=== PATIENT | female | born 1960 | race Caucasian/White ===

== ENCOUNTER 2023-07-16 14:22 | Outpatient (AMB) | payer OTHER, SELFPAY ==
--- NOTE | 2023-07-16 14:27 | A.OFFVIS_ITS ---
Intake Intake Visit Reasons: Kidney Stones Intake Note: NEW Patient presents today to established treatment for Kidney Stones: Meds- Tamsulosin( She did finish) Allergies to Antibiotic- Amoxicillin Blood Thinner- None Allergies amoxicillin Allergy (Unverified 07/20/23 10:51) Unknown Medication List - Last Reconciled 07/16/23 by Bobbi Arguelles MD ondansetron mg PO tamsulosin 0.4 mg PO DAILY HPI HPI Comments History of Present Illness Details Nabila is a 63-year-old female who presents today to the office to establish as a new patient for an evaluation of kidney stones. 07/16/2023? She presents today for an evaluation of kidney stones. She was referred to the urology office by NAVI Bagley. I have reviewed the consults notes. She was referred to the urology office due to kidney stones. She had an prior episode on 12/22/2031 noted to have a 2 mm ureteral stone and followed up with another urology group at that time. She had renal US done which revealed mild left hydronephrosis and possible 7 mm proximal ureter stone. (report reviewed) I reviewed the CAT scan that was done on 06/18/23 noted a 5 mm left UVJ stone, with mild to moderate hydronephrosis. I have discussed plan for Cystoscopy, left ureteroscopy, laser lithotripsy, ureteral stent. Risks discussed included but not limited to, possible need to repeat procedure if stone is not completely fragmented, Irritative voiding symptoms, bladder spasms, urgency, blood in urine. Evaluation today--UA? Leukocytes: negative; blood: 80 Kei. Plan: Scheduled ureteroscopy next week. Ordered tamsulosin 0.4 mg daily. Obtain the 24-hour urine collection from the other urology office. [facility] Medical History History of renal stone Hallux valgus with bunions Presbyopia Astigmatism Myopia Needle phobia Surgical History History of bunionectomy Hx of hysterectomy Family History Mother Malignant neoplastic disease Myocardial infarction Father Myocardial infarction Sister Sepsis due to pneumonia Brother Acute deep vein thrombosis of leg Social History Alcohol intake: current Patient Tobacco Use Status: Former Tobacco user Review of Systems Const All systems reviewed & are unremarkable except as noted in HPI and below Reports no additional complaints Eyes Reports no additional complaints ENT Reports no additional complaints Card Denies dyspnea Resp Denies cough and Denies dyspnea GI Reports no additional complaints Reports no additional complaints Musc Reports no additional complaints Skin/Breast Denies rash and Denies unusual bruising Neuro Reports no additional complaints Psych Reports no additional complaints Endo Reports no additional complaints Dimitris/Lymph Reports no additional complaints Aller/Immun Reports no additional complaints Physical Exam Const General: cooperative, healthy appearing and no acute distress Orientation/consciousness: patient oriented x3 HEENT Head: Yes normal to inspection, Yes normocephalic and Yes atraumatic Eyes Conjunctivae: conjunctivae normal Neck Neck: Yes normal visual inspection and Yes trachea midline Chest Chest palpation & inspection: normal inspection of the chest Resp Effort & Inspection: normal respiratory effort Cardio Rate: regular rate GI Inspection: Yes normal to inspection Skin General skin exam: no rashes or lesions noted Neuro General: patient oriented x3 Extrem General: No edema Psych Appearance: grossly normal Results AMB Urinalysis, Automated UA Leukoctes 0 [place]/uL Last Edit by DENISHA Vera on 07/16/23 14:50 UA Nitrite Negative Last Edit by DENISHA Vera on 07/16/23 14:50 UA Urobilinogen 0.2 mg/dL Last Edit by DENISHA Vera on 07/16/23 14:5 0 UA Protein 30 mg/dL Last Edit by DENISHA Vera on 07/16/23 14:50 UA pH 6.0 Last Edit by DENISHA Vera on 07/16/23 14:50 UA Blood 80 Kei/uL Last Edit by DENISHA Vera on 07/16/23 14:50 UA Specific [place] 1.025 Last Edit by DENISHA Vera on 07/16/23 14: 50 UA Ketone Negative Last Edit by DENISHA Vera on 07/16/23 14:50 UA Bilirubin 1 mg/dL Last Edit by DENISHA Vera on 07/16/23 14:50 UA Glucose 0 mg/dL Last Edit by Gina Huang RMJoaquín on 07/16/23 14:50 Results Reviewed Results Reviewed: Laboratory Last Values Urine pH (Auto) 6.0 07/16/23 14:31 Specific [place] (Auto) 1.025 07/16/23 14:31 Urine Protein (Auto) 30 mg/dL 07/16/23 14:31 Glucose (UA)(Auto) 0 mg/dL 07/16/23 14:31 Urine Ketones (Auto) Negative 07/16/23 14:31 Urine Blood (Auto) 80 Kei/uL 07/16/23 14:31 Urine Nitrite (Auto) Negative 07/16/23 14:31 Urine Bilirubin (Auto) 1 mg/dL 07/16/23 14:31 Urine Urobilinogen (Auto) 0.2 mg/dL 07/16/23 14:31 Leukocyte Esterase (Auto) 0 [place]/uL 07/16/23 14:31 Assessment & Plan Assessment & Plan (1) Hydronephrosis: Code(s): N13.30 - Unspecified hydronephrosis (2) Ureteral stone: Code(s): N20.1 - Calculus of ureter Plan Scheduled ureteroscopy next week. Ordered tamsulosin 0.4 mg daily. Obtain the 24-hour urine collection from the other urology office. Orders: Orders AMB Urinalysis Automated 07/16/23 Z13.9 - Encounter for screening, unspecified Medications: New tamsulosin take in the evening before bed. 0.4 mg PO DAILY 14 caps 0RF to help pass kidney stone Patient Instructions: The patient had an opportunity to ask questions regarding treatment plan. All questions were answered. Imaging, Laboratory studies and physical exam results were discussed and reviewed in detail. No major barriers to understanding were identified. The patient expressed understanding and agreement with the above treatment plan.? ? ? The patient is aware they should contact our office by phone for worsening of their current condition or the appearance of new symptoms. Compliance is encouraged with any medications and followup testing that is ordered.? ? ? It is a privilege to be allowed the opportunity to participate in the urologic care of your patient. If you have any questions or concerns regarding treatment for the above conditions please do not hesitate to contact me. The office telephone contact is [phone].? ? ? This note is constructed in part using voice recognition software. While every effort has been made to ensure accuracy mop handle assembler errors may have been included.? ? ? Yours sincerely,? ? ? Bobbi Arguelles MD? Coding Level of Care Code New Pt Level 4 (53296) Diagnoses Hydronephrosis N13.30 Ureteral stone N20.1
--- NOTE | 2023-07-16 14:27 | MHC.OFFVIS ---
Intake Intake Visit Reasons: Kidney Stones Intake Note: NEW Patient presents today to established treatment for Kidney Stones: Meds- Tamsulosin Allergies to Antibiotic- Amoxicillin Blood Thinner- None Allergies amoxicillin Allergy (Mild, Verified 07/09/23 08:50) Unknown hydrocodone Allergy (Mild, Verified 07/09/23 08:50) Unknown PFSH Medical History History of renal stone Hallux valgus with bunions Presbyopia Astigmatism Myopia Needle phobia Surgical History History of bunionectomy Hx of hysterectomy Family History Mother Malignant neoplastic disease Myocardial infarction Father Myocardial infarction Sister Sepsis due to pneumonia Brother Acute deep vein thrombosis of leg Social History Alcohol intake: current Patient Tobacco Use Status: Former Tobacco user Coding
== END 2023-07-16 15:56 | disposition home or self-care (01) ==
PROVIDERS: PCP Physician Assistant; Visit Provider Urology
DX: N13.30 Unspecified hydronephrosis (principal); N20.1 Calculus of ureter
CPT/HCPCS: 99204

== ENCOUNTER → 2023-07-16 14:22 | Outpatient (BNVA) | payer OTHER, SELFPAY | PROVIDERS: PCP Physician Assistant; Visit Provider Urology | DX: N13.2 Hydronephrosis with renal and ureteral calculous obstruction (principal) | CPT/HCPCS: 81003 ==

== ENCOUNTER 2023-07-21 07:26 | Day surgery (SDC) | payer OTHER, SELFPAY ==
--- NOTE | 2023-07-20 13:21 | HO.ANESPROP2 ---
HPI - Anesthesia Eval Consult details Narrative: 63yo F for Cystoscopy, Ureteroscopy, Laser Ablation w stent placement PMFSH Past Medical History Medical History History of renal stone Hallux valgus with bunions Presbyopia Astigmatism Myopia Needle phobia Family History Family History Mother Malignant neoplastic disease Myocardial infarction Father Myocardial infarction Sister Sepsis due to pneumonia Brother Acute deep vein thrombosis of leg Surgical History Surgical History History of bunionectomy Hx of hysterectomy Social History Social History Alcohol intake: current Patient Tobacco Use Status: Former Tobacco user Quit Date: 37 years Meds Allergies Allergy/AdvReac Type Severity Reaction Status Date / Time No Known Allergies Allergy Verified 07/21/23 08:13 Home Medications Medication Instructions Recorded Confirmed Last Taken Type ondansetron 4 mg disintegrating 4 mg PO Q4H PRN Nausea And Vomiting 07/16/23 07/16/23 Unknown History tablet Exam Exam Date and Time: July 20, 2023 1321 Assessment and Plan Assessment Anesthesia Assessment: Chart Reviewed
[2023-07-21] VITALS (7 sets, daily range): BP systolic 137–152; BP diastolic 63–74; PULSE 67–74; RESP 16–18; TEMP 36.6–37; O2SAT 94–99; BMI 23.1
--- NOTE | ~2023-07-21 | FL_ITS ---
EXAMINATION: XR FLUOROSCOPY WITH IMAGES CLINICAL INFORMATION: Cystoscopy special, left. COMPARISON: None available. TECHNIQUE: Fluoroscopy Supervised By: Dr. Arguelles. Fluoroscopy Time: 18.7 seconds. Cumulative Dose: 3.29 mGy. DAP: Not available. Images: 5. FINDINGS: Fluoroscopy guidance performed for left internal stent placement. Final image demonstrates a left internal ureteral stent in satisfactory position. FL/FL guidance in OR IMPRESSION: Fluoroscopy guidance for left internal ureteral stent placement.
--- NOTE | 2023-07-21 07:58 | P.CONAN_ITS ---
FORM[facility]LY [facility], LATER [facility] Active Problems Active Problems: All Active Problems (Updated 07/20/23 @ 15:33 by Bobbi Arguelles MD) Ureteral stone (Acute) Hydronephrosis (Acute) Past Medical History Medical History History of renal stone Hallux valgus with bunions Presbyopia Astigmatism Myopia Needle phobia Functional capacity: independent ambulation Patient : No Family History Family History Mother Malignant neoplastic disease Myocardial infarction Father Myocardial infarction Sister Sepsis due to pneumonia Brother Acute deep vein thrombosis of leg Family history of problems with anesthesia: No Surgical History Surgical History History of bunionectomy Hx of hysterectomy History of Problems with Anesthesia: No Social History Social History Alcohol intake: current Patient Tobacco Use Status: Former Tobacco user Quit Date: 37 years Meds Allergies Allergy/AdvReac Type Severity Reaction Status Date / Time No Known Allergies Allergy Verified 07/21/23 08:13 Active Medications: Current Medications Lactated Ringer's (Lr) 1,000 mls @ 100 mls/hr IVCONT .Q10H [facility] Home Medications Medication Instructions Recorded Confirmed Last Taken Type ondansetron 4 mg disintegrating 4 mg PO Q4H PRN Nausea And Vomiting 07/16/23 07/16/23 Unknown History tablet Exam Exam Date and Time: July 21, 2023 0758 Airway Mallampati Class: II TM Dist: >3cm Neck ROM: Full Heart: RRR Lungs: CTA Assessment and Plan Assessment Anesthesia Assessment: Anesthesia Plan Discussed Final Anesthetic Review Family History of Problems with Anesthesia: No History of Problems with Anesthesia: No NPO: Yes ASA Class: II Final Preanesthetic Review: Meds/Allgs Chart Reviewed, Consent Obtained/Reviewed and Anes Risks/Benef Reviewed Anesthetic Plan Anesthetic Plan: GA Disposition: Standard PACU
[2023-07-21] MEDS: Lactated Ringers 1,000 ML 100 ML IVCONT (08:18)
--- NOTE | 2023-07-21 08:38 | MHC.SHP ---
Pre-Procedural Eval Section A Date of Service: 07/21/23 The patient is an INPATIENT: No The History & Physical has been completed within 30 days and I have reviewed it.: Yes Section B Chief Complaint: Calculus of kidney Allergies: Allergies Allergy/AdvReac Type Severity Reaction Status Date / Time No Known Allergies Allergy Verified 07/21/23 08:13 Plan Diagnosis/Plan: Unchanged I have reviewed the history and physical and performed a pertinent physical examination on my patient. No changes have occurred unless specified. Plan for Cystoscopy, left ureteroscopy, possible laser lithotripsy, possible ureteral stent. Risks discussed included but not limited to, possible need to repeat procedure if stone is not completely fragmented, Irritative voiding symptoms, bladder spasms, urgency, blood in urine. Time Spent With Patient Time: Total time managing care of this patient today ____ minutes.
--- NOTE | 2023-07-21 10:22 | W.PM.OPN ---
Operative Note Operative Note Date of Service: 07/21/23 Narrative: PreOperative Diagnosis:?? Left ureteral stone Post Operative Diagnosis:?? Left ureteral stone Procedure: - Cystoscopy, left retrograde, left ureteroscopy laser lithotripsy stent insertion, 6 Bolivian by 24 cm urethral dilation Surgeon:?Dr Bobbi Arguelles Anesthesia:? General Indications for procedure: Procedure: After informed consent was verified the patient was brought to the operating placed on the OR table in supine position.? General Anesthesia was administered per protocol.? The patient was placed in lithotomy position, prepped and draped in the usual sterile fashion.? Safety pause time-out and side of surgery confirmed.? Antibiotics confirmed. 2% lidocaine jelly 10 mL was passed transurethrally. The urethral meatus was atrophic. The 22 cystoscope or obturator was not able to be passed transurethrally. The urethral meatus was dilated starting with a 14 fr and sequentially dilated up to a 24 fr. A 22 Bolivian cystoscope was inserted transurethrally, The bladder was visualized.? Both ureteric orifices were in normal position. An open-ended ureteral catheter was passed into the left ureteral orifice and a retrograde examination was performed. There was a filling defect in the distal left ureter. A guidewire was passed through the ureteral catheter into the kidney. The balloon dilator size 12 fr was passed over the guide -wire the balloon was inflated to 8 mmHg and the intramural ureter was dilated for 45 seconds. The balloon was deflated and removed. After removing the balloon dilator a 2nd guidewire was then passed into the kidney to use as a safety. The cystoscope was removed, leaving both guidewires in place. One guidewire was used as the safety and was attached to the draping. The semi rigid ureteroscope was passed over one of the guidewires to the level of the stone in the ureter. One guidewire was then removed. Laser lithotripsy of the stone was done using the 365 fiber with a settings 0.8 joules by 6 hertz. Total KJ 5.52 There was good fragmentation of the stone. The 0 degree basket was passed through the ureteroscope, the stone fragments were removed to send for analysis. The ureteroscope was removed. The cystoscope was passed over the safety guidewire. A? 6 Bolivian by 24 cm stent was placed into the ureter and renal pelvis under a combination of fluoroscopy and direct visualization. The bladder was emptied.? The rigid cystoscope was removed. ? The patient tolerated the procedure well and was brought to the recovery room in stable condition. Complications: None Drains: Ureteral stent as dictated above
--- NOTE | 2023-07-21 14:06 | HO.POSTANES ---
Post Anesthesia Evaluation Post Anesthesia Evaluation Date of Service: 07/21/23 Vital Signs: Vital Signs Temp Pulse Resp BP Pulse Ox O2 Del Method 07/21/23 10:53 98.2 F 73 16 152/70 H 99 Room Air 07/21/23 10:40 67 16 141/69 H 99 Room Air 07/21/23 10:25 67 16 138/64 99 Room Air 07/21/23 10:20 71 16 145/69 H 94 Room Air 07/21/23 10:15 74 16 141/69 H 95 Room Air 07/21/23 10:10 98 F 72 16 137/63 97 Room Air 07/21/23 07:58 98.6 F 69 18 149/74 H 99 Room Air Anesthesia: General LMA Mental Status: Awake Pain Control: Satisfactory Nausea/Vomiting: None Hydration: Adequate Anesthesia-Related Issues: No Anes. Related Issues
[2023-07-28 13:58] LABS: Stone Source KIDNEY STONE
== END 2023-07-21 12:07 | disposition home or self-care (01) ==
PROVIDERS: PCP Physician Assistant; Visit Provider Urology
PROC: (CPT 52356; principal; 2023-07-21 10:10)
DX: N20.1 Calculus of ureter (principal); Z87.442 Personal history of urinary calculi; F40.231 Fear of injections and transfusions; H52.4 Presbyopia; H55.89 Other irregular eye movements; Z88.1 Allergy status to other antibiotic agents; Z79.899 Other long term (current) drug therapy; Z87.891 Personal history of nicotine dependence
CPT/HCPCS: 52356; 82365; 88300; C1726; C1769; C2617; J1956; J2250; J2405; J3010; Q9967

== ENCOUNTER → 2023-07-21 07:26 | Outpatient (BNV) | payer OTHER, SELFPAY | PROVIDERS: PCP Physician Assistant; Visit Provider Urology | DX: N20.1 Calculus of ureter (principal) | CPT/HCPCS: 52356; 74420 ==

== ENCOUNTER 2023-07-30 07:50 | Outpatient (AMB) | payer OTHER, SELFPAY ==
--- NOTE | 2023-07-30 07:54 | MHC.OFFVIS ---
Intake Intake Visit Reasons: Post op Cysto stent removal Intake Note: Patient presents today for a CYSTOSCOPY Procedure: Meds: None Allergies to Antibiotic: No Known Allergies Blood Thinner: None Urinalysis test cleared for Cysto Disposable Uro-G Cystoscope Cannula: Lot: [id number] Exp: 03/15/2025 Eligibility Worker Required: No Accompanied by: Self / Same As Patient Allergies No Known Allergies Allergy (Verified 07/30/23 08:12) HPI HPI Comments History of Present Illness Details Nabila is a 63-year-old female who presents today to the office for a follow-up. 07/30/2023? She is followed today for post op stent removal. She is a status post ureteroscopy done on 07/21/2023.? Patient states that her is very sick and was hospitalized at [facility], Currently, he is undergoing a major surgery due to hiatal hernia.. Stone analysis was obtained which came back calcium oxalate dihydrate 10 %, and calcium oxalate monohydrate was 90%. I have again reviewed 06/18/23 CTAP report which did not report intra renal caluli, left UVJ stone was treated as above. Reviewed lifestyle changes with diet including drinking adequate fluids to reduce risk of developing another kidney stone Plan: Stent was removed today in the office. To obtain 24-hour urine calcium. Follow-up in 10 weeks. [facility] Medical History (Updated 07/30/23 @ 08:42 by Bobbi Arguelles MD) History of renal stone Hallux valgus with bunions Presbyopia Astigmatism Myopia Needle phobia Surgical History History of removal of ureteral stent History of bunionectomy Hx of hysterectomy Family History Mother Malignant neoplastic disease Myocardial infarction Father Myocardial infarction Sister Sepsis due to pneumonia Brother Acute deep vein thrombosis of leg Social History Alcohol intake: current Patient Tobacco Use Status: Former Tobacco user Quit Date: 37 years Review of Systems Const All systems reviewed & are unremarkable except as noted in HPI and below Reports no additional complaints Eyes Reports no additional complaints ENT Reports no additional complaints Card Denies dyspnea Resp Denies cough and Denies dyspnea GI Reports no additional complaints Reports no additional complaints Musc Reports no additional complaints Skin/Breast Denies rash and Denies unusual bruising Neuro Reports no additional complaints Psych Reports no additional complaints Endo Reports no additional complaints Dimitris/Lymph Reports no additional complaints Aller/Immun Reports no additional complaints Office Procedures Cystoscopy Consent Discussed risk and benefit or proposed procedure with the patient. Information consent for procedure given to the patient. Discussed technical aspects, risks, benefits and alternatives in full. Addressed all of the patient's questions and concerns regarding the procedure. The patient demonstrated knowledge and understanding. They wish to proceed with this procedure. Preparation The patient was prepped in the usual manner. A remote sensing engineer was present and in the room. Genitalia was prepped with betadine solution in a sterile manner. Lidocaine Jelly 2% was placed into the urethra and 16Fr flexible Olympus cystoscope was inserted into the meatus after adequate lubrication. [id number] DISPOSABLE SCOPE URO-G FLEXIBLE SCOPE Procedure code (CPT) selection complete Office Meds lidocaine HCl 2 % mucosal jelly in applicator Performing Provider: Bobbi Arguelles MD Performing Location[facility] Administered by: Weston Her LPN on 07/30/23 08:12 Dose Route Admin Location Dispensed Lot Number Expiration Date ND Activities Coordinator 10 mL intra-urethral 20 mL naproxen 500 mg tablet Performing Provider: Bobbi Arguelles MD Performing Location: [facility] Administered by: Weston Her LPN on 07/30/23 08:12 Dose Route Admin Location Dispensed Lot Number Expiration Date NDC Activities Coordinator 500 mg PO 1 tab ciprofloxacin HCl 500 mg tablet Performing Provider: Bobbi Arguelles MD Performing Location: [facility] Administered by: Weston Her LPN on 07/30/23 08:12 Dose Route Admin Location Dispensed Lot Number Expiration Date NDC Activities Coordinator 500 mg PO 1 tab Results AMB Urinalysis, Automated UA Leukoctes 125 [place]/uL Last Edit by DENISHA Whittington on 07/30/23 08:15 2+ Tiana Arteaga 07/30/23 08:15 UA Nitrite Negative Last Edit by DENISHA Whittington on 07/30/23 08:15 UA Urobilinogen 0.2 mg/dL Last Edit by Jccanid Chandler, [facility] on 07/30/23 08:15 UA Protein 100 mg/dL Last Edit by Jccandi Chandler, [facility] on 07/30/23 08:15 2+ Tiana Chandler 07/30/23 08:15 UA pH 6.0 Last Edit by Jccandi Chandler, [facility] on 07/30/23 08:15 UA Blood 200 Kei/uL Last Edit by Jccandi Chandler, [facility] on 07/30/23 08:15 3+ Jccandi Morenoirez 07/30/23 08:15 UA Specific [place] 1.025 Last Edit by Tiana Chandler, [facility] on 07/30/23 08:15 UA Ketone Negative Last Edit by Jccandi Chandler, [facility] on 07/30/23 08:15 UA Bilirubin 0 mg/dL Last Edit by Tiana Arteaga [facility] on 07/30/23 08:15 UA Glucose 0 mg/dL Last Edit by Tiana Arteaga [facility] on 07/30/23 08:15 Results Reviewed Results Reviewed: Laboratory Last Values Urine pH (Auto) 6.0 07/30/23 08:13 Specific [place] (Auto) 1.025 07/30/23 08:13 Urine Protein (Auto) 100 mg/dL 07/30/23 08:13 Glucose (UA)(Auto) 0 mg/dL 07/30/23 08:13 Urine Ketones (Auto) Negative 07/30/23 08:13 Urine Blood (Auto) 200 Kei/uL 07/30/23 08:13 Urine Nitrite (Auto) Negative 07/30/23 08:13 Urine Bilirubin (Auto) 0 mg/dL 07/30/23 08:13 Urine Urobilinogen (Auto) 0.2 mg/dL 07/30/23 08:13 Leukocyte Esterase (Auto) 125 [place]/uL 07/30/23 08:13 EBONY: 07/21/23 STATUS: COMP REQ : [id number] RECD: 07/21/23-[address]: Bobbi Arguelles MD COMP: 07/28/23-1358 ENTERED: 07/21/23-[address]: WALESKA CERVANTES ORDERED: Kidney Stone QUERIES: Kidney Stone Source: [id number] Test Result Flag Reference Site Component 1 SEE NOTE QUM Calcium Oxalate Dihydrate ([place]) 10% Calcium Oxalate Monohydrate ([place]) 90% See Note 1 Stone Weight 0.029 g QUM Note 1 This test was developed and its analytical performance characteristics have been determined by [employer]. It has not been cleared or approved by the FDA. This assay has been validated pursuant to the CLIA regulations and is used for clinical purposes. THIS TEST WAS PERFORMED AT: [facility] [facility] [address] [place] [address] AMBIKA MERCADO MD Stone Source KIDNEY STONE QUM Assessment & Plan Assessment & Plan (1) Hydronephrosis: Code(s): N13.30 - Unspecified hydronephrosis (2) Ureteral stone: Code(s): N20.1 - Calculus of ureter (3) Nephrolithiasis: Code(s): N20.0 - Calculus of kidney Plan Stent was removed today in the office. To obtain 24-hour urine calcium.? Follow-up in 10 weeks. Orders: Orders AMB Cystoscopy Today N13.30 - Unspecified hydronephrosis AMB Urinalysis Automated Today Z13.9 - Encounter for screening, unspecified Patient Instructions: The patient had an opportunity to ask questions regarding treatment plan. All questions were answered. Imaging, Laboratory studies and physical exam results were discussed and reviewed in detail. No major barriers to understanding were identified. The patient expressed understanding and agreement with the above treatment plan.? ? ? The patient is aware they should contact our office by phone for worsening of their current condition or the appearance of new symptoms. Compliance is encouraged with any medications and followup testing that is ordered.? ? ? It is a privilege to be allowed the opportunity to participate in the urologic care of your patient. If you have any questions or concerns regarding treatment for the above conditions please do not hesitate to contact me. The office telephone contact is [phone].? ? ? This note is constructed in part using voice recognition software. While every effort has been made to ensure accuracy turn out worker errors may have been included.? ? ? Yours sincerely,? ? ? Bobbi Arguelles MD? Coding Level of Care Code Est Pt Level 3 (74898) Diagnoses Hydronephrosis N13.30 Ureteral stone N20.1 Nephrolithiasis N20.0 CPT Codes Cystoscopy - CPT: 68821-[id number] ([id number])
== END 2023-07-30 08:54 | disposition home or self-care (01) ==
PROVIDERS: PCP Physician Assistant; Visit Provider Urology
DX: N13.30 Unspecified hydronephrosis (principal); N20.1 Calculus of ureter; N20.0 Calculus of kidney; Z13.9 Encounter for screening, unspecified; Z96.0 Presence of urogenital implants
CPT/HCPCS: 52310; 99213

== ENCOUNTER → 2023-07-30 07:50 | Outpatient (BNVA) | payer OTHER, SELFPAY | PROVIDERS: PCP Physician Assistant; Visit Provider Urology | DX: Z48.816 Encounter for surgical aftercare following surgery on the genitourinary system (principal) | CPT/HCPCS: 52310; 81003 ==

== ENCOUNTER 2023-10-08 13:47 | Outpatient (AMB) | payer OTHER, SELFPAY ==
--- NOTE | 2023-10-08 13:52 | A.OFFVIS_ITS ---
Intake Intake Visit Reasons: 24hr urine- follow up Intake Note: Patient presents today for a follow-up on Litholink Results: Meds- Tamsulosin( She did finish) Allergies to Antibiotic- Amoxicillin Blood Thinner- None Mail Order Biller Required: No Accompanied by: Significant Other Allergies No Known Allergies Allergy (Verified 10/08/23 13:57) HPI HPI Comments History of Present Illness Details Nabila is a 63-year-old female who presents today to the office for a follow-up. 10/08/2023? She is followed today for 24-hour urine collection. She was last seen by me on 07/30/2023 for post op stent removal. I reviewed the 24-hour urine collection test results revealed urine volume was 1.79 L which is increased from 450, urine calcium was 307 which is elevated, urine oxalate was 32, urine citrate was 773, and urine sodium was 286. I have discussed at length diet modification to decrease risk of forming more kidney stones. I have discussed low oxalate diet and specific foods to avoid including certain green leafy vegetables, chocalate, nuts, tea, beets, rubarb; low sodium, decreased use of animal protein and the importance of hydration drinking up to 2-2.5 liters of fluids and use of adding lemon to water to increase citrate in the diet. Review of charts: Last visit: 07/30/2023? She is followed today for post op stent removal. She is a status post ureteroscopy done on 07/21/2023. Patient states that her is very sick and was hospitalized at [facility], Currently, he is undergoing a major surgery due to hiatal hernia.. Stone analysis was obtained which came back calcium oxalate dihydrate 10 %, and calcium oxalate monohydrate was 90%. 06/18/23 CTAP report which did not report intra renal caluli, left UVJ stone was treated as above. 10/08/2023: Plan: Renal US was ordered. Repeat 24-hour urine collection in 7 months. Follow-up in 9 months to review the results. [facility] Medical History (Updated 10/08/23 @ 14:14 by Bobbi Arguelles MD) History of renal stone Hallux valgus with bunions Presbyopia Astigmatism Myopia Needle phobia Surgical History History of removal of ureteral stent History of bunionectomy Hx of hysterectomy Family History Mother Malignant neoplastic disease Myocardial infarction Father Myocardial infarction Sister Sepsis due to pneumonia Brother Acute deep vein thrombosis of leg Social History Alcohol intake: current Patient Tobacco Use Status: Former Tobacco user Quit Date: 37 years Review of Systems Const All systems reviewed & are unremarkable except as noted in HPI and below Reports no additional complaints Eyes Reports no additional complaints ENT Reports no additional complaints Card Denies dyspnea Resp Denies cough and Denies dyspnea GI Reports no additional complaints Reports no additional complaints Musc Reports no additional complaints Skin/Breast Denies rash and Denies unusual bruising Neuro Reports no additional complaints Psych Reports no additional complaints Endo Reports no additional complaints Dimitris/Lymph Reports no additional complaints Aller/Immun Reports no additional complaints Physical Exam Const General: cooperative, healthy appearing and no acute distress Orientation/consciousness: patient oriented x3 HEENT Head: Yes normal to inspection, Yes normocephalic and Yes atraumatic Eyes Conjunctivae: conjunctivae normal Neck Neck: Yes normal visual inspection and Yes trachea midline Chest Chest palpation & inspection: normal inspection of the chest Resp Effort & Inspection: normal respiratory effort Cardio Rate: regular rate GI Inspection: Yes normal to inspection Skin General skin exam: no rashes or lesions noted Neuro General: patient oriented x3 Extrem General: No edema Psych Appearance: grossly normal Results AMB Urinalysis, Automated UA Leukoctes 15 [place]/uL Last Edit by DENISHA Whittington on 10/08/23 14:07 UA Nitrite Negative Last Edit by DENISHA Whittington on 10/08/23 14:07 UA Urobilinogen 0.2 mg/dL Last Edit by DENISHA Whittington on 10/08/23 14:0 7 UA Protein 15 mg/dL Last Edit by DENISHA Whittington on 10/08/23 14:07 UA pH 6.0 Last Edit by VANDANA WhittingtonA on 10/08/23 14:07 UA Blood 10 Kei/uL Last Edit by VANDANA WhittingtonA on 10/08/23 14:07 UA Specific [place] 1.030 Last Edit by VANDANA WhittingtonA on 10/08/23 14: 07 UA Ketone Negative Last Edit by Tiana Arteaga RMA on 10/08/23 14:07 UA Bilirubin 0 mg/dL Last Edit by VANDANA WhittingtonA on 10/08/23 14:07 UA Glucose 0 mg/dL Last Edit by VANDANA WhittingtonA on 10/08/23 14:07 Results Reviewed Results Reviewed: Laboratory Last Values Urine pH (Auto) 6.0 10/08/23 14:06 Specific [place] (Auto) 1.030 10/08/23 14:06 Urine Protein (Auto) 15 mg/dL 10/08/23 14:06 Glucose (UA)(Auto) 0 mg/dL 10/08/23 14:06 Urine Ketones (Auto) Negative 10/08/23 14:06 Urine Blood (Auto) 10 Kei/uL 10/08/23 14:06 Urine Nitrite (Auto) Negative 10/08/23 14:06 Urine Bilirubin (Auto) 0 mg/dL 10/08/23 14:06 Urine Urobilinogen (Auto) 0.2 mg/dL 10/08/23 14:06 Leukocyte Esterase (Auto) 15 [place]/uL 10/08/23 14:06 Assessment & Plan Assessment & Plan (1) History of renal stone: Code(s): Z87.442 - Personal history of urinary calculi Plan Renal US was ordered. Repeat 24-hour urine collection in 7 months. Follow-up in 9 months to review the results. Orders: Orders AMB Urinalysis Automated 10/08/23 Z13.9 - Encounter for screening, unspecified US renal BI 10/08/23 Z87.442 - Personal history of urinary calculi Medications: New tamsulosin (Flomax) 0.4 mg PO BEDTIME 30 caps 4RF help with urinary flow Patient Instructions: The patient had an opportunity to ask questions regarding treatment plan. All questions were answered. Imaging, Laboratory studies and physical exam results were discussed and reviewed in detail. No major barriers to understanding were identified. The patient expressed understanding and agreement with the above treatment plan. The patient is aware they should contact our office by phone for worsening of their current condition or the appearance of new symptoms. Compliance is encouraged with any medications and followup testing that is ordered. It is a privilege to be allowed the opportunity to participate in the urologic care of your patient. If you have any questions or concerns regarding treatment for the above conditions please do not hesitate to contact me. The office telephone contact is [phone]. This note is constructed in part using voice recognition software. While every effort has been made to ensure accuracy management rep errors may have been included. Yours sincerely, Bobbi Arguelles MD Coding Level of Care Code Est Pt Level 4 (59613) Diagnoses History of renal stone Z87.442
== END 2023-10-08 14:14 | disposition home or self-care (01) ==
PROVIDERS: PCP Physician Assistant; Visit Provider Urology
DX: Z87.442 Personal history of urinary calculi (principal)
CPT/HCPCS: 99214

== ENCOUNTER → 2023-10-08 13:47 | Outpatient (BNVA) | payer OTHER, SELFPAY | PROVIDERS: PCP Physician Assistant; Visit Provider Urology | DX: Z87.442 Personal history of urinary calculi (principal) | CPT/HCPCS: 81003 ==

== ENCOUNTER 2024-06-23 09:51 | Outpatient (REF) | payer MEDICARE, OTHER, SELFPAY ==
--- NOTE | ~2024-06-23 | US_ITS ---
EXAMINATION: US RETROPERITONEAL COMPLETE (RENAL) CLINICAL INFORMATION: History of renal calculi. COMPARISON: None available. TECHNIQUE: Real-time imaging of the kidneys and bladder. Limited visualization due to bowel gas. FINDINGS: RIGHT KIDNEY: 10.2 x 4.5 x 3.4 cm (SAG x AP x TRV). No hydronephrosis. Renal cortical thickness is normal. Limited visualization. Tiny right renal midpole echogenic foci may represent calcified vessels and do not appear typical of renal calculi. No obstructing renal calculi. LEFT KIDNEY: 10.1 x 5.1 x 4.1 cm (SAG x AP x TRV). Mild hydronephrosis. No renal calculi. Renal cortical thickness is normal. Limited visualization. BLADDER: Prevoid bladder volume 57.5 mL. Bladder was visualized due to mild hydronephrosis, upper, dedicated bladder ultrasound was not performed. Incidental note on limited views of the pelvis of a left adnexal anechoic, cystic structure, possibly a pelvic cyst. Dedicated evaluation with pelvic ultrasound recommended. US/US renal BI IMPRESSION: 1. Mild left hydronephrosis. Tiny right renal midpole echogenic foci may represent calcified vessels and do not appear typical of renal calculi. No obstructing renal calculi. 2. Incidental note on limited views of the pelvis of a left adnexal anechoic, cystic structure, possibly a pelvic cyst. Dedicated evaluation with pelvic ultrasound recommended. Electronically signed by: Vi Levi MD 07/06/2024 06:01 AM EDT
== END 2024-06-23 09:52 | disposition home or self-care (01) ==
LOC: HO.US 09:51
PROVIDERS: PCP Physician Assistant; Visit Provider Urology
DX: Z87.442 Personal history of urinary calculi (principal)
CPT/HCPCS: 76775

== ENCOUNTER 2024-07-07 14:01 | Outpatient (AMB) | payer MEDICARE, OTHER, SELFPAY ==
--- NOTE | 2024-07-07 14:02 | A.OFFVIS_ITS ---
Intake Visit Reasons: 9m/US/Lithgek(set) Intake Note: Patient presents today for a 9M follow-up on Litholink/US Meds- Tamsulosin, PYRIDIUM, VESICASE Allergies to Antibiotic- Amoxicillin Blood Thinner- None Operations Supervisor Required: No Accompanied by: Significant Other Allergies amoxicillin Allergy (Mild, Verified 07/07/24 14:04) UNKONWN Medication List - Last Reconciled 07/07/24 by Bobbi Arguelles MD ondansetron 4 mg PO Q4H PRN phenazopyridine (Pyridium) 200 mg PO TID PRN HPI Comments Details: 07/07/24--Nabila is a 64-year-old female who presents today to the office for a follow-up. Mild left hydronephrosis. Tiny right renal midpole echogenic foci may represent calcified vessels and do not appear typical of renal calculi. Incidental note on limited views of the pelvis of a left adnexal anechoic, cystic structure, possibly a pelvic cyst. Discussed 24 hour urine results: Total volume 1.0 L, Calcium 166 mg; Oxalate 35 mg, Sodium 129, Citrate 466 mg. Instructed on importance of fluid intake. Will refer to DATA SUPPORT SPECIALIST, monitor kidneys, fu in one year. Review of charts: 10/08/2023? She is followed today for 24-hour urine collection. She was last seen by me on 07/30/2023 for post op stent removal. I reviewed the 24-hour urine collection test results revealed urine volume was 1.79 L which is increased from 450, urine calcium was 307 which is elevated, urine oxalate was 32, urine citrate was 773, and urine sodium was 286. I have discussed at length diet modification to decrease risk of forming more kidney stones. I have discussed low oxalate diet and specific foods to avoid including certain green leafy vegetables, chocalate, nuts, tea, beets, rubarb; low sodium, decreased use of animal protein and the importance of hydration drinking up to 2-2.5 liters of fluids and use of adding lemon to water to increase citrate in the diet. 07/30/2023?She is followed today for post op stent removal. She is a status post ureteroscopy done on 07/21/2023. Patient states that her is very sick and was hospitalized at [facility], Currently, he is undergoing a major surgery due to hiatal hernia.. Stone analysis was obtained which came back calcium oxalate dihydrate 10 %, and calcium oxalate monohydrate was 90%. 06/18/23 CTAP report which did not report intra renal caluli, left UVJ stone was treated as above. [facility] Medical History History of renal stone Hallux valgus with bunions Presbyopia Astigmatism Myopia Needle phobia Surgical History History of removal of ureteral stent History of bunionectomy Hx of hysterectomy Family History Mother Malignant neoplastic disease Myocardial infarction Father Myocardial infarction Sister Sepsis due to pneumonia Brother Acute deep vein thrombosis of leg Social History Alcohol intake: current Patient Tobacco Use Status: Former Tobacco user Review of Systems Const All systems reviewed & are unremarkable except as noted in HPI and below Reports no additional complaints Eyes Reports no additional complaints ENT Reports no additional complaints Card Reports no additional complaints Resp Reports no additional complaints GI Reports no additional complaints Reports as per HPI Musc Reports no additional complaints Skin/Breast Reports system reviewed and no additional complaints, except as documented Neuro Reports no additional complaints Psych Reports no additional complaints Endo Reports no additional complaints Dimitris/Lymph Reports no additional complaints Aller/Immun Reports no additional complaints Results AMB Urinalysis, Automated UA Leukoctes 0 [place]/uL Last Edit by WILLIS Plummer on 07/07/24 14:16 UA Nitrite Negative Last Edit by WILLIS Plummer on 07/07/24 14:16 UA Urobilinogen 0.2 mg/dL Last Edit by WILLIS Plummer on 07/07/24 14:1 6 UA Protein 15 mg/dL Last Edit by Janettgisella Kent [facility] on 07/07/24 14:16 UA pH 6.0 Last Edit by Roma Kent [facility] on 07/07/24 14:16 UA Blood 25 Kei/uL Last Edit by Janettaloksydney TaylorDonte, [facility] on 07/07/24 14:16 UA Specific [place] 1.030 Last Edit by Roma Kent [facility] on 07/07/24 14: 16 UA Ketone Negative Last Edit by Roma Kent [facility] on 07/07/24 14:16 UA Bilirubin 0 mg/dL Last Edit by Roma Kent [facility] on 07/07/24 14:16 UA Glucose 0 mg/dL Last Edit by Roma Kent [facility] on 07/07/24 14:16 Results Reviewed Results Reviewed: Laboratory Last Values Urine pH (Auto) 6.0 07/07/24 14:16 Specific [place] (Auto) 1.030 07/07/24 14:16 Urine Protein (Auto) 15 mg/dL 07/07/24 14:16 Glucose (UA)(Auto) 0 mg/dL 07/07/24 14:16 Urine Ketones (Auto) Negative 07/07/24 14:16 Urine Blood (Auto) 25 Kei/uL 07/07/24 14:16 Urine Nitrite (Auto) Negative 07/07/24 14:16 Urine Bilirubin (Auto) 0 mg/dL 07/07/24 14:16 Urine Urobilinogen (Auto) 0.2 mg/dL 07/07/24 14:16 Leukocyte Esterase (Auto) 0 [place]/uL 07/07/24 14:16 EBONY: 07/21/23 STATUS: COMP REQ : [id number] RECD: 07/21/23-[address]: Bobbi Arguelles MD COMP: 07/28/23-1358 ENTERED: 07/21/23-[address]: WALESKA CERVANTES ORDERED: Kidney Stone QUERIES: Kidney Stone Source: [id number] Test Result Flag Reference Site Component 1 SEE NOTE QUM Calcium Oxalate Dihydrate (Weddellite) 10% Calcium Oxalate Monohydrate (Whewellite) 90% See Note 1 Stone Weight 0.029 g QUM Note 1 This test was developed and its analytical performance characteristics have been determined by [employer]. It has not been cleared or approved by the FDA. This assay has been validated pursuant to the CLIA regulations and is used for clinical purposes. THIS TEST WAS PERFORMED AT: [facility] [address] [place] [address] AMBIKA MERCADO MD Stone Source KIDNEY STONE QUM Date of Service: 06/23/24 US RETROPERITONEAL COMPLETE (RENAL) CLINICAL INFORMATION: History of renal calculi. COMPARISON: None available. TECHNIQUE: Real-time imaging of the kidneys and bladder. Limited visualization due to bowel gas. FINDINGS: RIGHT KIDNEY: 10.2 x 4.5 x 3.4 cm (SAG x AP x TRV). No hydronephrosis. Renal cortical thickness is normal. Limited visualization. Tiny right renal midpole echogenic foci may represent calcified vessels and do not appear typical of renal calculi. No obstructing renal calculi. LEFT KIDNEY: 10.1 x 5.1 x 4.1 cm (SAG x AP x TRV). Mild hydronephrosis. No renal calculi. Renal cortical thickness is normal. Limited visualization. BLADDER: Prevoid bladder volume 57.5 mL. Bladder was visualized due to mild hydronephrosis, upper, dedicated bladder ultrasound was not performed. Incidental note on limited views of the pelvis of a left adnexal anechoic, cystic structure, possibly a pelvic cyst. Dedicated evaluation with pelvic ultrasound recommended. IMPRESSION: 1. Mild left hydronephrosis. Tiny right renal midpole echogenic foci may represent calcified vessels and do not appear typical of renal calculi. No obstructing renal calculi. 2. Incidental note on limited views of the pelvis of a left adnexal anechoic, cystic structure, possibly a pelvic cyst. Dedicated evaluation with pelvic ultrasound recommended. Assessment & Plan Assessment & Plan (1) History of renal stone: Code(s): Z87.442 - Personal history of urinary calculi Category: Medical (2) Adnexal cyst: Code(s): N94.9 - Unspecified condition associated with female genital organs and menstrual cycle Category: Medical Plan Instructed on importance of fluid intake. Will refer to DATA SUPPORT SPECIALIST, monitor kidneys, fu in one year Orders: Orders AMB Urinalysis Automated Today Z13.9 - Encounter for screening, unspecified US renal BI 11 Months Z87.442 - Personal history of urinary calculi Referrals [facility] Referral N94.9 - Unspecified condition associated with female genital organs and menstrual cycle Medications: Discontinued phenazopyridine (Pyridium) take with food as may upset stomach Discontinued Reason: Patient no longer taking 200 mg PO TID PRN 30 tabs 0RF pain with urination Patient Instructions: The patient had an opportunity to ask questions regarding treatment plan. The patient expressed understanding and agreement with the above treatment plan. The patient is aware they should contact our office by phone for worsening of their current condition or the appearance of new symptoms. Compliance is encouraged with any medications and followup testing that is ordered. It is a privilege to be allowed the opportunity to participate in the urologic care of your patient. If you have any questions or concerns regarding treatment for the above conditions please do not hesitate to contact me. The office telephone contact is [phone]. This note is constructed in part using voice recognition software. While every effort has been made to ensure accuracy extended day teacher errors may have been included. Yours sincerely, Bobbi Arguelles MD Coding Level of Care Code Est Pt Level 4 (15323) Diagnoses History of renal stone Z87.442 Adnexal cyst N94.9
== END 2024-07-07 14:54 | disposition home or self-care (01) ==
PROVIDERS: PCP Physician Assistant; Visit Provider Urology
DX: Z87.442 Personal history of urinary calculi (principal); N94.9 Unspecified condition associated with female genital organs and menstrual cycle; Z13.9 Encounter for screening, unspecified
CPT/HCPCS: 99214

== ENCOUNTER → 2024-07-07 14:01 | Outpatient (BNVA) | payer OTHER, SELFPAY | PROVIDERS: PCP Physician Assistant; Visit Provider Urology | DX: N94.9 Unspecified condition associated with female genital organs and menstrual cycle (principal); Z87.442 Personal history of urinary calculi | CPT/HCPCS: 81003; 99212 ==

== ENCOUNTER 2024-07-19 08:14 | Outpatient (REF) | payer MEDICARE, OTHER, SELFPAY ==
[2024-07-22 14:48] LABS: HPV mRNA E6/E7 Not Detected (Not Detected)
== END 2024-07-19 08:15 | disposition home or self-care (01) ==
LOC: HO.LNP 08:14
PROVIDERS: PCP Physician Assistant; Visit Provider Obstetrics & Gynecology
DX: N94.89 Other specified conditions associated with female genital organs and menstrual cycle (principal)
CPT/HCPCS: 87624; 88175; 99202

== ENCOUNTER 2024-07-19 08:14 | Outpatient (AMB) | payer MEDICARE, OTHER, SELFPAY ==
--- NOTE | 2024-07-19 08:16 | MHC.OFFVIS ---
Vital Signs 07/19/24 08:18 Height 5 ft 5 in Weight 134 lb BMI 22.3 BP 128/76 Intake Visit Reasons: Ultrasound finding Chemist Proteins Required: No Information Interpreted: non-clinical & clinical Accompanied by: Self / Same As Patient Allergies No Known Allergies Allergy (Verified 07/19/24 08:19) Post menopausal: Yes HPI Comments Details: Renal ultrasound on 06/23 showed an Incidental note on limited views of the pelvis of a left adnexal anechoic, cystic structure, possibly a pelvic cyst. Dedicated evaluation with pelvic ultrasound was recommended by the radiologist. CT scan done in 06/24 showed 2 right ovarian cysts , 1 of them measuring 3.4 cm and the other 1 measured 2.8 cm, and a left ovarian cyst measuring 3 cm. Last co testing was in 11/21 was negative Last mammogram was in 10/24 according to patient was negative and was done in [facility] Medical History History of renal stone Hallux valgus with bunions Presbyopia Astigmatism Myopia Needle phobia Surgical History (Updated 07/19/24 @ 08:38 by Kaiden Tavares MD) History of removal of ureteral stent History of bunionectomy Hx of hysterectomy Family History Mother Malignant neoplastic disease Myocardial infarction Father Myocardial infarction Sister Sepsis due to pneumonia Brother Acute deep vein thrombosis of leg Social History Household Members: Spouse Housing: House Alcohol intake: current Alcohol intake frequency: a few times a week Alcohol type: wine Patient Tobacco Use Status: Former Tobacco user Years Smoked: 30 Current occupational status: employed and retired 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 Sexually active: Yes Sexual orientation: Straight/Heterosexual Gender identity: Female Review of Systems Const All systems reviewed & are unremarkable except as noted in HPI and below Card Reports as per HPI Resp Reports as per HPI GI Reports as per HPI and Reports no additional complaints Reports as per HPI Physical Exam Vital Signs: BMI result Body Mass Index 22.3 Const General: cooperative, healthy appearing and comfortable Chest Chest palpation & inspection: normal inspection of the chest and normal palpation of entire chest wall Breast/axilla inspection: normal inspection of the breasts and normal inspection of the axillae Breast/axilla palpation: normal palpation of the breasts, normal palpation of the axillae and no axillary lymphadenopathy Resp Effort & Inspection: normal respiratory effort Auscultation: clear to auscultation bilaterally Percussion: percussion normal Cardio Palpation: normal PMI Rate: regular rate Rhythm: regular rhythm Heart sounds: no murmurs and no rubs Peripheral pulses: Peripheral pulses 2+ throughout GI Inspection: Yes normal to inspection Palpation (GI): Soft to palpation, nontender, no guarding, not rigid and No hepatosplenomegaly present Percussion: Yes normal to percussion Auscultation: normal bowel sounds Rectal Exam - Female: deferred General: Yes bladder normal to palpation External Female Exam: No lesion Speculum Exam - Vagina: normal appearance of the vagina, normal palpation, normal vaginal discharge and not erythematous Speculum Exam - Cervix: normal appearance of the cervix and normal palpation Bimanual exam- vagina & uterus: normal bimanual exam, normal palpation, uterine size normal, bladder normal to palpation, consistency normal and normal palpation Bimanual Exam- Adnexa, other: normal adnexae, no masses and no tenderness Assessment & Plan Assessment & Plan (1) Adnexal cyst: Code(s): N94.9 - Unspecified condition associated with female genital organs and menstrual cycle Category: Medical Plan: Co testing done. Will order pelvic ultrasound. Instructions given the patient to schedule a pelvic ultrasound and a follow-up appointment. All questions answered, the patient verbalized understanding Orders: Orders US pelvic and transvaginal Today N94.9 - Unspecified condition associated with female genital organs and menstrual cycle Coding Level of Care Code New Pt Level 3 (03467) Diagnoses Adnexal cyst N94.9
[2024-07-19 08:18] VITALS: BP 128/76; BMI 22.3
== END 2024-07-19 08:42 | disposition home or self-care (01) ==
PROVIDERS: PCP Physician Assistant; Visit Provider Obstetrics & Gynecology
DX: N94.9 Unspecified condition associated with female genital organs and menstrual cycle (principal)
CPT/HCPCS: 99203

== ENCOUNTER 2024-07-22 13:25 | Outpatient (REF) | payer MEDICARE, OTHER, SELFPAY ==
--- NOTE | ~2024-07-22 | US_ITS ---
EXAMINATION: US PELVIS CLINICAL INFORMATION: Ovarian cyst seen on prior ultrasound, 06/23/2024 renal ultrasound. COMPARISON: Renal ultrasound of 06/23/2024. TECHNIQUE: Ultrasound of the pelvis is performed using both transabdominal and transvaginal transducers along with Doppler. Transvaginal imaging is performed due to inadequate visualization transabdominally. FINDINGS: The uterus is surgically absent. Limited visualization due to bowel gas. Right ovary measures 5.7 x 6.5 x 4.9 cm, volume 95.5 mL. 4.5 x 2.4 x 4.4 cm and 5.2 x 3.6 x 4.3 cm right ovarian complex cysts with multiple septations and low-level internal echoes are difficult to characterize as visualization is limited due to large size, bowel gas and body habitus. Left ovary measures 4.6 x 3.0 x 3.9 cm, volume 28.1 mL. 3.0 x 2.9 x 2.4 cm left ovarian cyst, likely simple. US/US pelvic and transvaginal IMPRESSION: 1. Right ovarian complex cysts with multiple septations and low-level internal echoes are difficult to characterize as visualization is limited due to large size, bowel gas and body habitus. Left ovarian 3.0 cm cyst, likely simple. 2. Uterus is surgically absent. 3. Gynecologic consultation and possible additional imaging with MRI recommended. This study was presented to me on July 26, 2024 for interpretation. PSA staff will provide results to referring provider at this time. Electronically signed by: Vi Levi MD 07/26/2024 02:05 PM EDT
== END 2024-07-22 13:26 | disposition home or self-care (01) ==
LOC: HO.US 13:25
PROVIDERS: PCP Physician Assistant; Visit Provider Obstetrics & Gynecology
DX: N94.9 Unspecified condition associated with female genital organs and menstrual cycle (principal)
CPT/HCPCS: 76830; 76856

== ENCOUNTER 2024-08-01 15:52 | Outpatient (AMB) | payer MEDICARE, OTHER, SELFPAY ==
--- NOTE | 2024-08-01 16:10 | MHC.OFFVIS ---
Vital Signs 08/01/24 16:12 Height 5 ft 5 in Weight 132 lb 4.438 oz BMI 22.0 Intake Visit Reasons: Ultrasound follow up Allergies No Known Allergies Allergy (Verified 07/19/24 08:19) HPI Comments Details: Presenting for ultrasound follow-up which showed the following: The uterus is surgically absent. Limited visualization due to bowel gas. Right ovary measures 5.7 x 6.5 x 4.9 cm, volume 95.5 mL. 4.5 x 2.4 x 4.4 cm and 5.2 x 3.6 x 4.3 cm right ovarian complex cysts with multiple septations and low-level internal echoes are difficult to characterize as visualization is limited due to large size, bowel gas and body habitus. Left ovary measures 4.6 x 3.0 x 3.9 cm, volume 28.1 mL. 3.0 x 2.9 x 2.4 cm left ovarian cyst, likely simple. Last Mammo 12/29/23 at [facility] in [place] was negative according to the pt no report available [facility] Medical History History of renal stone Hallux valgus with bunions Presbyopia Astigmatism Myopia Needle phobia Surgical History History of removal of ureteral stent History of bunionectomy Hx of hysterectomy Family History Mother Malignant neoplastic disease Myocardial infarction Father Myocardial infarction Sister Sepsis due to pneumonia Brother Acute deep vein thrombosis of leg Social History Household Members: Spouse Housing: House Alcohol intake: current Alcohol intake frequency: a few times a week Alcohol type: wine Patient Tobacco Use Status: Former Tobacco user Years Smoked: 30 Current occupational status: employed and retired 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 The differential diagnosis discussed with the patient includes the following but not limited to: benign and malignant gynecological and non-gynecological. Recommended CT scan of abdomen and pelvis with oral contrast and CA 125, CEA and CA 19- 9 and referred to Gyne Onc for surgical management. Appointment schedule with Dr. Gao on August 11 at 10:00, the patient is aware Orders: Orders Carcinoembryonic Antigen 08/01/24 N83.299 - Other ovarian cyst, unspecified side CA-125 08/01/24 N83.299 - Other ovarian cyst, unspecified side Carbohydrate Antigen 19-9 08/01/24 N83.299 - Other ovarian cyst, unspecified side CT abdomen pelvis wo/w IV con 08/01/24 N83.299 - Other ovarian cyst, unspecified side Referrals Gynecologic Oncology Referral N83.299 - Other ovarian cyst, unspecified side Coding Level of Care Code Est Pt Level 3 (59481) Diagnoses Complex ovarian cyst N83.299
[2024-08-01 16:12] VITALS: BMI 22.0
== END 2024-08-02 07:45 | disposition home or self-care (01) ==
LOC: HO.HWS 15:52
PROVIDERS: PCP Physician Assistant; Visit Provider Obstetrics & Gynecology
DX: N83.299 Other ovarian cyst, unspecified side (principal)
CPT/HCPCS: 99213

== ENCOUNTER 2024-08-01 15:52 | Outpatient (REF) | payer MEDICARE, OTHER, SELFPAY ==
[2024-08-02 08:08] LABS: Blood Urea Nitrogen 11 mg/dL (9-16); Estimated Glomerular Filt Rate > 60
[2024-08-03 10:28] LABS: CA-125 7 U/mL (<35)
[2024-08-06 08:48] LABS: Carbohydrate Antigen 19-9 14 U/mL (<34)
== END 2024-08-01 15:53 | disposition home or self-care (01) ==
LOC: HO.LAB 15:52
PROVIDERS: PCP Physician Assistant; Visit Provider Obstetrics & Gynecology
DX: N83.299 Other ovarian cyst, unspecified side (principal)
CPT/HCPCS: 36415; 82378; 82565; 84520; 86301; 86304; 99212

== ENCOUNTER 2024-08-09 08:22 | Outpatient (REF) | payer MEDICARE, OTHER, SELFPAY ==
--- NOTE | ~2024-08-09 | CT_ITS ---
EXAMINATION: CT ABDOMEN AND PELVIS WITH CONTRAST CLINICAL INFORMATION: Ovarian cyst COMPARISON: Ultrasound 07/22/2024 TECHNIQUE: Multidetector volumetric images were obtained from the superior aspect of the liver through the pubic symphysis following administration 85 mL of Omnipaque 350 intravenous contrast. Sagittal and coronal reformatted images were obtained on the technologist's workstation. Oral contrast: No Delayed imaging was also performed through the kidneys. This CT examination was performed using dose optimization techniques as appropriate, variously including the following: *Automated exposure control *Adjustment of mA and/or kV according to patient size (this includes techniques or standardized protocols for targeted exams where dose is matched to indication/reason for exam; i.e. extremities or head) *Use of iterative reconstruction technique DLP: 449 mGy-cm FINDINGS: LUNG BASES: The visualized lung bases are unremarkable. LIVER, GALLBLADDER, AND BILIARY TREE: The liver is normal in size, shape, and attenuation. No focal hepatic lesion or biliary ductal dilatation is present. The gallbladder is unremarkable with no evidence of radiopaque gallstones, gallbladder wall thickening, or obvious pericholecystic inflammatory changes. PANCREAS: Unremarkable. SPLEEN: Unremarkable. ADRENAL GLANDS: Unremarkable. KIDNEYS AND URETERS: The kidneys are normal in size, shape, and attenuation. No hydronephrosis, hydroureter, or calculi seen. No perinephric stranding. Multiple left peripelvic cysts which do not require additional follow-up. BLADDER: Unremarkable. GASTROINTESTINAL TRACT: The small and large bowel are unremarkable. The appendix is unremarkable. ABDOMINAL WALL: No significant hernia is appreciated. LYMPH NODES: Normal. VASCULAR: Unremarkable. PELVIC VISCERA: Again demonstrated are bilateral adnexal cysts. On the right, there are 2 cysts which abut one another than half maximal transverse measurements of 5.7 and 4.6 cm respectively. On the left, the adnexal cyst has a maximal transverse measurement of 3.9 cm. Although these appear simple on CT, ultrasound provides a more sensitive and specific evaluation and the largest of the right-sided cysts at that time showed internal septations and low-level echoes for which MRI was suggested. OSSEOUS STRUCTURES: Moderate to severe multilevel degenerative disc disease of the lumbar spine incidental hemangiomas within the T10 and T11 vertebral bodies. Moderate bilateral hip osteoarthritis. CT/CT abdomen pelvis w IV con IMPRESSION: Bilateral adnexal cysts as detailed in the comments. The largest of the right-sided cysts measures 5.7 and 4.6 cm. Although these appear simple on CT, ultrasound provides a more sensitive and specific evaluation and the largest of the right-sided cysts on a recent ultrasound showed internal septations and low-level echoes for which MRI was suggested. Therefore, a pelvic MRI is recommended. Fleischner guidelines were followed. Electronically signed by: Jez Barcenas MD 08/09/2024 01:15 PM EDT
[2024-08-09] MEDS: iohexoL 350 MG/ML 100 ML INFUS..BTL IV (11:19)
== END 2024-08-09 08:23 | disposition home or self-care (01) ==
LOC: HO.CT 08:22
PROVIDERS: PCP Physician Assistant; Visit Provider Obstetrics & Gynecology
DX: N83.299 Other ovarian cyst, unspecified side (principal)
CPT/HCPCS: 74177; Q9967

== ENCOUNTER 2024-09-14 08:20 | Outpatient (AMB) | payer MEDICARE, OTHER, SELFPAY ==
--- NOTE | 2024-09-14 08:28 | A.OFFVIS_ITS ---
Vital Signs 09/14/24 08:30 BP 118/70 Intake Visit Reasons: CT follow up Sammying Machine Operator: Sammying Machine Operator Present (Kimmy) Accompanied by: Spouse Allergies No Known Allergies Allergy (Verified 09/14/24 08:32) HPI Comments Details: Presenting for CT scan follow-up with showed the following: IMPRESSION: Bilateral adnexal cysts as detailed in the comments. The largest of the right-sided cysts measures 5.7 and 4.6 cm. Although these appear simple on CT, ultrasound provides a more sensitive and specific evaluation and the largest of the right-sided cysts on a recent ultrasound showed internal septations and low-level echoes for which MRI was suggested. Therefore, a pelvic MRI is recommended. Fleischner guidelines were followed. The patient had robotic assisted laparoscopic hysterectomy BSO by Dr. Gao [facility] dyer and washer Oncology, frozen section was benign according to patient, the report is not available. The patient is schedule a postop visit in week. No complaints PFSH Medical History History of renal stone Hallux valgus with bunions Presbyopia Astigmatism Myopia Needle phobia Surgical History History of removal of ureteral stent History of bunionectomy Hx of hysterectomy Family History Mother Malignant neoplastic disease Myocardial infarction Father Myocardial infarction Sister Sepsis due to pneumonia Brother Acute deep vein thrombosis of leg Social History Household Members: Spouse Housing: House Alcohol intake: current Alcohol intake frequency: a few times a week Alcohol ty pe: wine Patient Tobacco Use Status: Former Tobacco user Years Smoked: 30 Current occupational status: employed and retired 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 [place] Sexual orientation: Straight/Heterosexual Gender identity: Female Review of Systems Const All systems reviewed & are unremarkable except as noted in HPI and below Reports as per HPI and Reports no additional complaints GI Reports no additional complaints Reports no additional complaints Physical Exam Vital Signs: Last Vital Signs BP 118/70 09/14/24 08:30 Assessment & Plan Assessment & Plan (1) Complex ovarian cyst: Comment: 2 on the right side Status post hysterectomy BSO Code(s): N83.299 - Other ovarian cyst, unspecified side Category: Medical Plan: Discussed with the patient the finding on CT scan and ovarian cancer tumor marker CA 125, CEA and CA 19-9. Instructions given the patient to follow-up with dyer and washer Oncology postop visit. All questions answered, the patient verbalized understanding Coding Level of Care Code Est Pt Level 3 (26145) Diagnoses Complex ovarian cyst N83.299
[2024-09-14 08:30] VITALS: BP 118/70
== END 2024-09-14 09:41 | disposition home or self-care (01) ==
PROVIDERS: PCP Physician Assistant; Visit Provider Obstetrics & Gynecology
DX: N83.299 Other ovarian cyst, unspecified side (principal)
CPT/HCPCS: 99213

== ENCOUNTER → 2024-09-14 08:20 | Outpatient (BNVA) | payer MEDICARE, OTHER, SELFPAY | PROVIDERS: PCP Physician Assistant; Visit Provider Obstetrics & Gynecology | DX: N83.291 Other ovarian cyst, right side (principal) | CPT/HCPCS: 99212 ==

== ENCOUNTER 2025-07-13 08:43 | Outpatient (REF) | payer MEDICARE, OTHER, SELFPAY ==
--- OUTSIDE RECORDS SUMMARY | 2025-07-10 09:30 | XMS_ITS | Encounter Summary ---
Author Organization [facility] Address [address] [facility] [address] [place] [phone] Phone Care Team Providers Care Gas Leak Tester Name Role Phone Joanne Luna NP Primary Care Provider Reason for Visit * Reason Comments Gait Abnormality Impaired Balance Weakness * Physical Therapy (Within 3 days (urgent)) - Authorized Specialty Diagnoses / Procedures Referred By Mani millan Referred To Contact Physical Therapy Diagnoses R Anterior hip relacement on 06/12- Chris aPdilla MD [address] [place] [address] Phone: tel: fax: [facility] [address] [place] [address] Phone: tel: Referral ID Status Reason Start Date Expiration Date V isits Requested Visits Authorized [id number] Authorized 06/23/2025 06/23/2026 99 99 Encounter Details Date Type Department Care Team (Late st Contact Info) Description 07/10/2025 9:30 AM EDT Office Visit [facility] Rehabilitation Services [address] [place] [address] Chris Padilla MD [address] [facility] [place] [address] India Sawyer, PT [address] [place] [address] Muscle weakness (Primary Dx); Decreased range of right hip movement Social History Tobacco Use Types Packs/Day Years Used Date Smoking Tobacco: Former Cigarettes 1 10 1 976 - 1985 Smokeless Tobacco: Never Alcohol Use Standard Drinks/Week Comments Yes 0 (1 standard drink = 0.6 oz pur e alcohol) 1-2/week Home Health Assessment: Transportation Answer Date Recorded Lack of Transportation (Medical) No 07/04/2025 Lack of Transportation (Non-Medical) No 07/04/2025 Patient Unable or Declines to Respond No 07/04/2025 Education Answer Date Recorded Are you interested in more education? Not on socorro e 02/27/2023 Are you concerned about learning? Not on file 02/27/2023 No 02/27/2023 No 02/27/2023 Digital Access Answer Date Recorded No 03/28/2023 No 03/28/2023 Reliable internet access at home? Not on file 03/28/2023 Device with a working camera? Not on file Intimate Partner Violence Answer Date R ecorded Are you denied basic needs s uch as food, clothing, or medical care? No 12/22/2022 In the past 12 months have y ou been in a relationship with a person who hurts, threatens, or tries to control you? No 12/22/2022 Are you denied basic needs s uch as food, clothing, or medical care? No 12/22/2022 In the past 12 months have y ou been in a relationship with a person who hurts, threatens, or tries to control you? No 12/22/2022 Comments Unknown Sex and Gender Information Value Date Recorded Sex Assigned at Female 12/22/2022 2:08 AM EST Legal Sex Female 9:50 PM EDT Gender Identity Female 12/22/2022 2:08 AM EST Sexual Orientation Not on file documented as of this encounter Progress Notes * India Sawyer, PT - 07/10/2025 9:30 AM EDT Images from the original note were not included. Physical Therapy Initial Evaluation Patient Name: Nabila Kirk Date of : 1960 Referring MD: Chris Padilla MD [address] [place] [address] Evaluation Date: SOC Date: 07/10/25 Treatment Diagnosis: ICD-10-CM 1. Muscle weakness M62.81 2. Decreased range of motion of right hip movement M25.651 PT Order - R Anterior hip relacement on 06/12/2025 SUBJECTIVE: 65 yo female referred to home health and now outpatient physical therapy s/p r anterior. Surgery at [facility] on 06/12/25 by Chris Padlila MD. Pt has progressed well with home health PT over the past 4 weeks. Patient is currently independent with all her mobility in the home and community. Patient managing her pain with tylenol and celebrex. Pt has adhered to home exercise program and performs daily. Patient has no range of motion or movement restrictions/precautions per patient and per home health physical therapy notes, patient was directed by surgical team at 4 week follow- up to move to tolerance. Past Medical History and Co-morbidities: Past Medical History: Diagnosis Date Back pain Hearing loss Your Diagnosis Also Included:: Changing skin lesion [L98.9] Medications: She has a current medication list which includes the following prescription(s): acetaminophen/diphenhydramine, aspirin, celecoxib, docusate sodium, ibuprofen, morphine, oxycodone, pantoprazole, polyethylene glycol, senna, and tramadol. Allergies: No Known Allergies Precautions/Safety: s/p R CARRIE R anterior approach (no strict precautions) (typical precautions: usecaution with extension and abduction) Functional Limitations: strength,stability Pain Comments: 0/10 pain with sit to stand, walking; 1-2/10 R anterior hip soreness with single legcalf raises OBJECTIVE Range of Motion: Hip flexion AROM: Left: 110 degrees Right: 94-95 degrees Strength: Lower Extremity Strength MMT HIP Right Left Flexion (seated) 5.7 4.3 Abduction (seated) 4.1 L sidelyin.3 4.3 R sidelying: NT Adduction (seated) 4.1 4.0 Internal Rotation (sidelying) 2.0 NT External Rotation (sidelying 3.0 NT KNEE Right Left Flexion 6.4 6.1 Extension 7.6 5.2 ANKLE Right Left Dorsiflexion 6.6 6.0 Plantarflexion 25/30 Fatigue at 20, felt fatigue in anterior groin Fatigue 24 30 second sit to stand (standard chair): 10 repetitions Standard chair Neurological Testing: light touch intact bilateral lower extremity Gait: gait speed > 1.0 m/s; grossly WFL Balance: NT Outcome Measures: 07/10/25 Going up or down stairs Mild Walking on an uneven surface Moderate Rising from sitting None Bending to floor/picking belt operator an object Mild Lying in bed (turning over, maintaining hip position) Mild Sitting None Submitted 07/10/25 PROMs HOOS-JR Score (Right Hip) 73.47 PROMs HOOS-JR Score (Left Hip) 73.47 ASSESSMENT Prognosis: excellent Clinical Assessment: Nabila is a 65 y.o. female presents to outpatient PT 4 weeks s/p R total hip arthroplasty, anterior approach, with Dr. Padilla on 06/12/25. Clinical findings include decreased hip range of motion, muscle weakness, impaired balance, decreased activity tolerance, and decreased endurance. Patient will benefit from skilled physical therapy services to address noted deficits, becomeindependent in self-care/home exercise program and improve functional mobility in order to return to prior level of function. Precautions/Safety: s/p R CARRIE R anterior approach (no strict precautions) (typical precautions: usecaution with extension and abduction) Patient stated goals: Patient wants to be able to get back onto a horse (swing my leg to be able to get back on horse) More range of motion More stamina Within 3-4 weeks: - Patient will achieve > or = 100 degrees right hip flexion AROM - Patient will participate in 10' on recumbent bike no increased pain improved endurance/AROM - Patient will be independent and compliant with initial home exercise program/self management Within 6-8 weeks: - Patient will improve hip strength > or = 1.0 lb of force in microfet - Patient will achieve > or = 110 degrees right hip flexion AROM - Improved AROM R hip ext 10, R hip abd > or = 35 to allow normal mechanics gait - Improved global hip strength > or = 4/5 to allow improved balance with IADL's - Improved walking tolerance 10' TM 2mph no increased lower extremity pain - Patient will be able to balance on right foot while stepping left foot over obstacle > or = 8 inches - Patient is able to demonstrate independence in final home exercise program/self management Within 12 weeks: -Patient will resume light horse back riding activities PLAN Frequency and Duration: Patient will be seen 1-2 times per week for 8 weeks s/p R CARRIE anterior approach 06/12/[address] Padilla PT to address ROM, strength/stability, gait, endurance, ed re HEP. Interventions below but not limited to: Manual Therapy: myofascial release; proprioceptive neuromuscular re-education, passive range of motion, instrument assisted myofascial release Core stabilization: pelvic stabilization; bracing; lower abdominal, plank and quadriped series Therapeutic Exercise: R sciatic nerve glides, concentric and eccentric open and closed chain glute/hip/lower extremity strength and flexibility; lumbopelvic stabilization; hip flexion and internal rotation active and passive range of motion Therapeutic Activity: push, pull, lift, carry, squat, lunge, pre-riding activities Neuromuscular re-education: breathing, posture, body mechanics with static and dynamic postures ie.with reaching, carrying, lifting Self-care/education The complexity of this evaluation is based on standardized patient assessment instruments and/or standardized measurable functional outcome. Education and/or treatment provided today: - TA isometric brace prior to straight leg raise - increasing reps to form fatigue zone with leg lifts, 12-15 reps at a time for open chain exercises - standing exercises: maintain 10 reps at a time Active Warm-up: []Bike seat 14, SBA on/off with 6 inch block with rail, 8' cues for 60-80 rpm []TM TM 10' total SBA BUE support 2mph ROM: [] Hip flexor, SKTC LLE only as a R hip flexor stretch x 10 [] Self lumbar traction on 2 chairs 5 sec x 5 [] Gastroc stretch on small wedge 3x20s [] Self resisted hip flexion at 90 degrees - 5 seconds x 10 R/L [] Supine heel slide foot on orange physio x15 [] Supine hip abduction/adductor stretch AROM x 5 R/L [] Hooklying butterfly stretch 3x20s, (04/01 attempted stand adductor stretch not effective Strength: [] Physio bridge 10x10s [] SLR x10 [] R hip abd s/l pillow between knees 10x5s RLE in L s/l [] Sit to stand no UE from chair: 2 inch cushion x 10 [] Squat to touch pillow on 2 inch cushion on chair x10 [] Stand heel/toe raise 2x10 [] LUE on counter one set, and LUE on counter with hand on ball 2x10 steps marching alternating [] S/l hip abd 8# dumbbell past greater trochanter 10x 5s hold [] Staggered Bridge 5x10s [] Sidestep hip abd blue TB above knees BUE at knees BUE on table 3x8' [] Stand bird dog 10x5s ea [] Sit to stand no UE from chair x11 Gait/function/balance: [] Stepping over 3inch objects UE support on dowel SBA to CGA, step to pattern forward 12 steps, 4 steps reciprocal pattern forward - not performed. Sidestep 10x no hold with UE on dowel CGA, sidestep with 3 s hold CGA UE support on dowel [] Foam SBA: black can do band toshia ext x10 3s holds, BUE diagonal 2# ball x10 ea, march x10 UE on ball on mat table [] Alternate mini lunge UE support on ball on table 20 steps forward, x20 steps lateral [] Rocker board [] Toe tap 6 inch block x10 fingertip on counter, x10 no hands SBA [] Forward/back walk 10'x1 SBA pole on L [] 6 inch forward step up (tap contralateral foot on chair) UE on rail x10 ea [] Reciprocal up and down stairs with rail I The Patient/Family is in agreement with the plan of care. Thank you for this referral. India Sawyer, YONG [phone] documented in this encounter Plan of Treatment Upcoming Encounters Date Type Department Care Team (Late st Contact Info) Description 07/17/2025 9:30 AM EDT Office Visit [facility] Rehabilitation Services [address] [place] [address] BrothChris menendez MD [address] [place] [phone] India Sawyer, YONG [address] [place] [address] 07/27/2025 11:45 AM EDT Office Visit [facility] [address] [place] [address] Chris Padilla MD [address] [place] [phone] India Sawyer, PT [address] [place] [address] 07/31/2025 9:30 AM EDT Office Visit [facility] [address] [place] [address] Chris Padilla MD [address] [place] [phone] India Sawyer, PT [address] [place] [address] 08/03/2025 10:45 AM EDT Office Visit [facility] [address] [place] [address] Chris Padilla MD [address] [place] [phone] Gerald Bucio, TRAVEL WRITER [address] [place] [address] 08/07/2025 9:30 AM EDT Office Visit [facility] [address] [place] [address] Chris Padilla MD [address] [place] [phone] India Sawyer, PT [address] [facility] [address] 08/10/2025 9:15 AM EDT Office Visit [facility] [address] [place] [address] Chris Padilla MD [address] [place] [phone] Gerald Bucio, TRAVEL WRITER [address] [place] [address] 08/15/2025 9:30 AM EDT Office Visit [facility] [address] [place] [address] Chris Padilla MD [address] [place] [phone] India Sawyer, PT [address] [place] [address] 08/17/2025 9:15 AM EDT Office Visit [facility] [address] [place] [address] Chris Padilla MD [address] [place] [phone] Gerald Bucio, [facility] [address] [place] [address] 08/21/2025 9:30 AM EDT Office Visit [facility] [address] [place] [address] Chris Padilla MD [address] [place] [phone] India Sawyer, PT [address] [place] [address] 08/24/2025 9:30 AM EDT Office Visit [facility] [address] [place] [address] Chris Padilla MD [address] [place] [phone] India Sawyer, PT [address] [place] [address] 09/26/2025 9:45 AM EST Appointment [facility], Bone Density - [address] [address] Fiorella Gant NP [address] [place] [address] documented as of this encounter Procedures Procedure Name Priority Date/Time Associated Diagnosis Comments AMB REFERRAL TO [facility] PHYSICAL THERAPY Routine 07/10/2025 4:45 PM EDT Encounter for rehabilitation documented in this encounter Results * Ambulatory referral to [facility] Physical Therapy (07/10/2025 4:45 PM EDT) Other Chris Padilla MD AMB [facility] REFERRALS Final Result documented in this encounter Visit Diagnoses Diagnosis Muscle weakness- Primary Muscle weakness (generalized) Decreased range of right hip movement documented in this encounter Care Teams Gas Leak Tester Relationship Specialty Start Date End Date Joanne Luna NP [address] [place] [phone] PCP - General Nurse Practitioner 06/12/25 documented as of this encounter Additional Source Comments The information contained in this document represents components of the legal health record. It is not the complete legal health record.[facility]
--- NOTE | ~2025-07-13 | US_ITS ---
CLINICAL HISTORY: Z87.442 - Personal history of urinary calculi --- Additional Notes or Special Instructions: Kidneys only US of kidneys Comparison: US/SR - US KIDNEY BILATERAL - 06/23/24 10:00 EDT Findings: Right kidney is normal in size, echogenicity and morphology, 9.9 cm in length. No calculus, mass or hydronephrosis. Left kidney is normal in size, echogenicity and morphology, 9.1 cm in length. No calculus or mass. Mild left hydronephrosis versus parapelvic cysts, difficult to differentiate on the submitted ultrasound images, there was mild left hydronephrosis on ultrasound from 2023. Limited color Doppler demonstrates unremarkable bilateral blood flow. Impression: Mild left hydronephrosis versus parapelvic cysts. This document has been electronically signed by: Rhonda Reaves MD on 07/13/2025 15:48:15
--- OUTSIDE RECORDS SUMMARY | 2025-07-13 09:46 | XMS_ITS | Encounter Summary ---
Author Organization [facility] Address [address] [place] [address] Phone Care Team Providers Care Solution Coordinator Name Role Phone Patricia Méndez Primary Care Prov ider Joanne Luna NP Primary Care Provider [phone] Encounter Details Date Type Department Care Team (Latest Contact Info) Description 11/30/2024 Transcribe Orders Virtual Department 30 [place] [address] Fiorella Gant NP [address] [place], [place] [phone] Asymptomatic menopausal state (Primary Dx) Social History Tobacco Use Types Packs/Day Years Used Date Smoking Tobacco: Former Cigarettes 1 10 1 976 - 1986 Smokeless Tobacco: Never Alcohol Use Standard Drinks/Week Comments Yes 0 (1 standard drink = 0.6 oz pur e alcohol) 1-2/week Education Answer Date Recorded Are you interested [...] on file documented as of this encounter Plan of Treatment Upcoming Encounters Date Type Department Care Team (Late st Contact Info) Description 07/17/2025 9:30 AM EDT Office Visit [facility] [address] [place] [address] Chris Padilla MD [address] [place] [phone] India Sawyer, PT [address] [place] [address] [email or web address] 07/27/2025 11:45 AM EDT Office Visit [facility] [address] [place] [address] Chris Padilla MD [address] [place] [phone] India Sawyer, PT [address] [place] [address] [email or web address] 07/31/2025 9:30 AM EDT Office Visit [facility] [address] [place] [address] Chris Padilla MD [address] [place] [phone] India Sawyer, PT [address] [place] [address] [email or web address] 08/03/2025 10:45 AM EDT Office Visit [facility] [address] [place] [address] Chris Padilla MD [address] [place] [address] Gerald Bucio, MOLDED PARTS INSPECTOR 8 [place] [address] [email or web address] 08/07/2025 9:30 AM EDT Office Visit [facility] [address] [place] [address] Chris Padilla MD [address] [place] [address] India Sawyer, PT [address] [place] [address] [email or web address] 08/10/2025 9:15 AM EDT Office Visit [facility] [address] [place] [address] Chris Padilla MD [address] [place] [phone] Gerald Bucio, MOLDED PARTS INSPECTOR 8 [place] [address] [email or web address] 08/15/2025 9:30 AM EDT Office Visit [address] [place] [address] Chris Padilla MD [address] [place] [address] India Sawyer, PT [address] [place] [address] [email or web address] 08/17/2025 9:15 AM EDT Office Visit [facility] [address] [place] [address] Chris Padilla MD [address] [place] [phone] Gerald Bucio, [facility] 8 [place] [address] 08/21/2025 9:30 AM EDT Office Visit [facility] [address] [place] [address] Chris Padilla MD [address] [place] [phone] India Sawyer, PT [address] [place] [address] [email or web address] 08/24/2025 9:30 AM EDT Office Visit [facility] [address] [place] [address] Chris Padilla MD [address] [place] [phone] India Sawyer, PT 380 [place] [address] [email or web address] 09/26/2025 9:45 AM EST Appointment [facility] [place], Bone Density - [address] [address] Fiorella Gant, JESSICA [address] [place] [address] Scheduled Orders Name Type Priority Associated Diagnoses Orde r Schedule DXA Screening Imaging Routine Asymptomatic menopausal state Expected: 11/30/2024, Expires: 11/30/2025 documented as of this encounter Visit Diagnoses Diagnosis Asymptomatic menopausal state- Primary documented in this encounter Care Teams Solution Coordinator Relationship Specialty Start Date End Date Patricia Méndez PA [address] [place] [address] [email or web address] PCP - General Emergency Medicine 02/10/18 06/11/25 Joanne Luna NP [address] [place] [address] PCP - General Nurse Practitioner 06/12/25 documented as of this encounter Additional Source Comments The information contained in this document represents components of the legal health record. It is not the complete legal health record.[facility]
--- OUTSIDE RECORDS SUMMARY | 2025-07-13 09:46 | XMS_ITS | Encounter Summary ---
Author Organization [facility] Address [address] [place] [address] Phone Care Team Providers Care Seo Team Lead Name Role Phone Joanne Luna NP Primary Care Provider [phone] Encounter Details Date Type Department Care Team (Latest Contact Info) Description 07/10/2025 Plan of Care Documentation [facility] [address] [place] [address] Social History Tobacco Use Types Packs/Day Years [...] on file documented as of this encounter Miscellaneous Notes * Outpatient Rehab Plan of Care - India Sawyer, PT - 07/10/2025 4:45 PM EDT [facility] HEALTH CARE FINANCING ADMINISTRATION PLAN OF TREATMENT FOR OUTPATIENT REHABILITATION (Complete for Initial Claims Only) 1. PROVIDER NAME: India Sawyer, PT 2. 3. ONSET DATE: 06/12/25 4. SOC DATE: 07/10/25 5. PRIMARY DIAGNOSIS: 1. Muscle weakness 2. Decreased range of right hip movement 6. VISITS FROM SOC: 1 7. PLAN OF TREATMENT FUNCTIONAL GOAL Precautions/Safety: s/p R CARRIE R anterior approach (no strict precautions) (typical precautions: usecaution with extension and abduction) Patient stated goals: 1. Patient wants to be able to get back onto a horse (swing my leg to be able to get back on horse) 2. More range of motion 3. More stamina Within 3-4 weeks: - Patient [...] dynamic postures ie.with reaching, carrying, lifting Self-care/education 8. SIGNATURE (professional establishing POC including prof. Designation): India Sawyer, YONG 9. INITIAL ASSESSMENT (History, medical complications, level of function at start of care. Reason for referral) Please refer to initial assessment note for full documentation. 10. FUNCTIONAL LEVEL (End of Billing Period) PROGRESS REPORT: Continue Services Please refer to progress notes and Plan of Care for documentation of patient progress. documented in this encounter Plan of Treatment Upcoming Encounters Date Type Department Care Team (Late st Contact Info) Description 07/17/2025 9:30 AM EDT Office Visit [facility] [address] [place] [address] Chris Padilla MD [facility] [place] [address] [address] India Sawyer, PT [address] [place] [address] [email or web address] 07/27/2025 11:45 AM EDT Office Visit [address] [place] [address] Chris Padilla MD 300 [place] [address] India Sawyer, PT [address] [place] [address] [email or web address] 07/31/2025 9:30 AM EDT Office Visit [address] [address] Chris Padilla MD [address] [place] [phone] India Sawyer, PT 380 [place] [address] [email or web address] 08/03/2025 10:45 AM EDT Office Visit [address] [place] [address] Chris Padilla MD 300 [place] [address] Gerald Bucio, [address] [address] 08/07/2025 9:30 AM EDT Office Visit [address] [place] [address] Chris Padilla MD 300 [place] [address] India Sawyer, PT [address] [place] [address] [email or web address] 08/10/2025 9:15 AM EDT Office Visit [facility] [address] [place] [address] Chris Padilla MD 300 [place] [address] Gerald Bucio, RESORT HOUSEKEEPER 8 [place] [address] 08/15/2025 9:30 AM EDT Office Visit [facility] [address] [place] [address] Chris Padilla MD 300 [place] [address] India Sawyer, PT [address] [place] [address] [email or web address] 08/17/2025 9:15 AM EDT Office Visit [facility] [address] [place] [address] Chris Padilla MD 300 [place] [address] Gerald Bucio, RESORT HOUSEKEEPER 8 [place] [address] 08/21/2025 9:30 AM EDT Office Visit [address] [place] [address] Chirs Padilla MD 300 [place] [address] India Sawyer, PT [address] [place] [address] [email or web address] 08/24/2025 9:30 AM EDT Office Visit [address] [place] [address] Chris Padilla MD [address] [place] [address] India Sawyer, PT [address] [place] [address] 09/26/2025 9:45 AM EST Appointment [facility], Bone Density - [address] [address] Fiorella Gant NP 70 [place] [address] documented as of this encounter Visit Diagnoses Not on filedocumented in this encounter Care Teams Seo Team Lead Relationship Specialty Start Date End Date Joanne Luna NP 70 [place] [address] PCP - General Nurse Practitioner 06/12/25 documented as of this encounter Additional Source Comments The information contained in this document represents components of the legal health record. It is not the complete legal health record.[facility]
--- OUTSIDE RECORDS SUMMARY | 2025-07-13 09:46 | XMS_ITS | Encounter Summary ---
Author Organization [facility] Address [address] [place] [address] Phone Care Team Providers Care Leaf Binner Name Role Phone Patricia Méndez Primary Care Prov ider Joanne Luna NP Primary Care Provider [phone] Encounter Details Date Type Department Care Team (Late st Contact Info) Description 12/22/2022 Procedure Pass [facility], Ct Scan - [address] [phone] Social History Tobacco Use Types Packs/Day Years Used Date Smoking Tobacco: Former Cigarettes 1 10 1 976 - 1986 Smokeless Tobacco: Never Alcohol Use Standard Drinks/Week Comments Yes 0 (1 standard drink = 0.6 oz pur e alcohol) 1-2/week Intimate Partner Violence Answer Date R ecorded [...] on file documented as of this encounter Functional Status * Calculated C-SSRS Risk Score (Lifetime/Recent) Answer Date of Assessment Author No Risk Indicated 12/22/2022 2:09 AM EST Geetha Mcgregor RN * [place] Suicide Severity Rating Scale (Screener/Recent Self-Report) Question Answer Date of Assessment Author 1. Wish to be (Past 1 Month) No 12/22/2022 2:09 AM EST Geetha Jones RN 2. Non-Specific Active Suici timmy Thoughts (Past 1 Month) No 12/22/2022 2:09 AM EST Judit Jones RN 6. Suicidal Behavior (Lifetime) No 2:09 AM Geetha Lam RN documented as of this encounter Plan of Treatment Upcoming Encounters Date Type Department Care Team (Late st Contact Info) Description 07/17/2025 9:30 AM EDT Office Visit [facility] [address] [place] [address] Chris Padilla MD [address] [facility] [place] [address] India Sawyer, PT [address] [place] [address] 07/27/2025 11:45 AM EDT Office Visit [facility] [address] [place] [address] Chris Padilla MD [address] [place] [address] India Sawyer, PT [address] [place] [address] 07/31/2025 9:30 AM EDT Office Visit [facility] [address] [place] [address] Chris Padilla MD 300 [place] [phone] India Sawyer, PT [address] [place] [address] 08/03/2025 10:45 AM EDT Office Visit [facility] [address] [place] [address] Chris Padilla MD [address] [place] [phone] Gerald Bucio, REAL ESTATE TEACHER 8 [place] [address] 08/07/2025 9:30 AM EDT Office Visit [facility] [address] [place] [address] Chris Padilla MD [address] [place] [phone] India Sawyer, PT 380 [place] [address] 08/10/2025 9:15 AM EDT Office Visit [address] [place] [address] Chris Padilla MD [address] [place] [phone] Gerald Bucio, REAL ESTATE TEACHER 8 [place] [address] 08/15/2025 9:30 AM EDT Office Visit [address] [place] [address] Chris Padilla MD [address] [place] [phone] India Sawyer, PT [address] [place] [address] 08/17/2025 9:15 AM EDT Office Visit [facility] [address] [place] [address] Chris Padilla MD 300 [place] [address] Gerald Bucio, REAL ESTATE TEACHER 8 [place] [address] 08/21/2025 9:30 AM EDT Office Visit [facility] 8 [place] [address] Chris Padilla MD 300 [place] [address] India Sawyer, PT 380 [place] [address] 08/24/2025 9:30 AM EDT Office Visit [facility] 8 [place] [address] Chris Padilla MD 300 [place] [address] India Sawyer, PT 380 [place] [address] 09/26/2025 9:45 AM EST Appointment [facility], Bone [address] [address] Fiorella Gant, SHUT OFF WORKER 70 [place] [address] documented as of this encounter Visit Diagnoses Not on filedocumented in this encounter Care Teams Leaf Binner Relationship Specialty Start Date End Date Patricia Méndez PA 70 [place] [address] PCP - General Emergency Medicine 02/10/18 06/11/25 Joanne Luna NP 70 [place] [address] PCP - General Nurse Practitioner 06/12/25 documented as of this encounter Additional Source Comments The information contained in this document represents components of the legal health record. It is not the complete legal health record.[facility]
--- OUTSIDE RECORDS SUMMARY | 2025-07-13 09:46 | XMS_ITS | Clinical Summary ---
Author Organization [facility] Address [address] [facility] [address] [place] [address] Phone Care Team Providers Care Dispatch Supervisor Name Role Phone Joanne Luna NP Primary Care Provider [phone] Allergies No known active allergies Medications morphine (MSIR) 15 MG tablet [The details of the medication are not available because there are pending changes by a home health clinician.] 10 tablet 3 Active Additional Information Patient not taking.Reason: Therapy complete, Reported on 06/13/2025 ibuprofen (ADVIL,MOTRIN) 600 MG tablet [The details of the medication are not available because there are pending changes by a home health clinician.] 16 tablet 3 Active Additional Information Patient not taking.Reason: Therapy complete, Reported on 06/13/2025 aspirin 325 MG EC tablet Take 325 mg by mouth 2 (two) times a day. 5 Active docusate sodium (COLACE) 100 MG capsule Take 100 mg by mouth 2 (two) times a day. 5 Active pantoprazole (PROTONIX) 40 MG tablet Take 40 mg by mouth daily. 5 Active traMADoL (ULTRAM) 50 mg tablet Take 50 mg by mouth every 6 (six) hours as needed for pain (specific location in comments). take 1-2 tabs for pain r hip 5 Active oxyCODONE 5 MG immediate release tablet Take 5 mg by mouth every 4 (four) hours as needed for pain (specific location in comments) (r hip). 1-2 tabs for severe pain Active acetaminophen/d iphenhydramine (ACETAMINOPHEN PM ORAL) Take 650 mg by mouth every 6 (six) hours. Active polyethylene glycol (MIRALAX) 17 gram/dose powder Take 17 g by mouth daily as needed for mild constipation. Active celecoxib (CELEBREX) 200 MG capsule Take 200 mg by mouth daily. Active senna (SENOKOT) 8.6 mg tablet Take 2 tablets by mouth daily as needed for constipation (take at bedtime). Active Active Problems Problem Noted Date Diagnosed Date Changing skin lesion 02/10/2018 Encounters Date Type Department Care Team Description 07/10/2025 9:30 AM EDT Office Visit [address] [place] [address] Brothers, MD Silverio Sow Rachael Mervine, PT Muscle weakness (Primary Dx); Decreased range of right hip movement 07/10/2025 Plan of Care Documentation [address] [place] [address] 07/04/2025 2:00 PM EDT Home Care Visit [facility] [address] [place] [phone] Florian Carr, PT PT OASIS DISCHARGE VISIT 06/29/2025 11:00 AM EDT [facility] [address] [place] [phone] Florian Carr, PT PT HOME VISIT 06/27/2025 11:00 AM EDT Home Care Visit [facility] [address] [place] [phone] Florian Carr, PT PT HOME VISIT 06/23/2025 11:00 AM EDT Home Care Visit [facility] [address] [place] [phone] Chris Mendez, PT PT HOME VISIT 06/23/2025 Transcribe Orders [facility] 8 [place] [address] Brothers, Chris [place] MD Encounter for rehabilitation (Primary Dx) 06/20/2025 4:00 PM EDT [facility] Care [facility] [address] [place] [phone] Chris Mendez, PT PT HOME VISIT 06/15/2025 2:00 PM EDT Home Care [facility] [address] [place] [address] Florian Carr, PT PT HOME VISIT 06/15/2025 Home Care Visit [facility] [address] [place] [address] Linda Waite, PT CASE COMMUNICATION 06/14/2025 10:30 AM EDT Home Care [facility] [address] [place] [address] Raphael Rocha, OT OT EVALUATION 06/14/2025 Home Care Visit [facility] [address] [place] [address] Raphael Rocha, OT TELEPHONE ENCOUNTER 06/13/2025 9:30 AM EDT Home Care Visit [facility] [address] [place] [address] Linda Waite, PT PT OASIS START OF CARE (SOC) 06/13/2025 Plan of Care Documentation [facility] [address] [place] [address] 06/12/2025 Orders Only [facility] [address] [place] [address] Homehealth, Interface ProviderMD from Last 3 Months Family History Medical History Relation Comments Heart disease Father Cancer Mother Heart disease Mother Relation Status Comments Father Mother Social History Tobacco Use Types Packs/Day Years [...] AM EST Sexual Orientation Not on file Last Filed Vital Signs Vital Sign Reading Time Taken Comments Blood Pressure 122/70 07/04/2025 2:35 PM EDT Pulse 72 07/04/2025 2:35 PM EDT Temperature 37 C (98.6 F) 07/04/2025 2:35 PM EDT Respiratory Rate 17 06/23/2025 10:29 AM EDT Oxygen Saturation 97% 07/04/2025 2:35 PM EDT Inhaled Oxygen Concentration - - Weight 61.2 kg (135 lb) 12/22/2022 2:05 AM EST Height 165.1 cm (5' 5 ) 12/22/2022 2:05 AM EST Body Mass Index 22.47 12/22/2022 2:05 AM EST Plan of Treatment Upcoming Encounters Date Type Department Care Team (Late st Contact Info) Description 07/17/2025 9:30 AM EDT Office Visit [facility] [address] [place] [address] Chris Padilla MD [address] [place] [phone] India Sawyer, PT [address] [place] [address] [email or web address] 07/27/2025 11:45 AM EDT Office Visit [address] [place] [address] Chris Padilla MD [address] [place] [phone] India Sawyer, PT [address] [place] [address] [email or web address] 07/31/2025 9:30 AM EDT Office Visit [facility] [address] [place] [address] Chris Padilla MD [address] [place] [phone] India Sawyer, PT [address] [place] [address] [email or web address] 08/03/2025 10:45 AM EDT Office Visit [address] [place] [address] Chris Padilla MD [address] [place] [phone] Gerald Bucio, FINANCE LEAD 8 [place] [address] 08/07/2025 9:30 AM EDT Office Visit [facility] [address] [place] [address] Chris Padilla MD [address] [place] [address] India Sawyer, PT [address] [place] [address] [email or web address] 08/10/2025 9:15 AM EDT Office Visit [facility] [address] [place] [address] Chris Padilla MD [address] [place] [phone] Gerald Bucio, FINANCE LEAD 8 [place] [address] [email or web address] 08/15/2025 9:30 AM EDT Office Visit [facility] [address] [place] [address] Chris Padilla MD [address] [place] [address] India Sawyer, PT [address] [place] [address] [email or web address] 08/17/2025 9:15 AM EDT Office Visit [facility] [address] [place] [address] Chris Padilla MD [address] [place] [address] Gerald Bucio, FINANCE LEAD 8 [place] [address] [email or web address] 08/21/2025 9:30 AM EDT Office Visit [facility] [address] [place] [address] Chris Padilla MD [address] [place] [phone] India Sawyer, PT [address] [place] [address] 08/24/2025 9:30 AM EDT Office Visit [facility] [address] [place] [address] Chris Padilla MD [address] [place] [address] India Sawyer, PT [address] [place] [address] 09/26/2025 9:45 AM EST Appointment [facility] Bone Density - [address] [address] Fiorella Gant, COMIC BOOK DESIGNER [address] [place] [address] Health Maintenance Due Date Last Done Comments LIPID PANEL 1959 DEPRESSION SCREENING 1971 SMOKING Hx and SMOKELESS TOBACCO SCREENING 02/17/1972 HEPATITIS C SCREENING 1977 MAMMOGRAM 1999 COLOGUARD 02/17/2004 COLONOSCOPY 02/17/2004 COLORECTAL CANCER SCREENING 02/17/2004 FIT TEST 02/17/2004 FOBT 02/17/2004 SIGMOIDOSCOPY 02/17/2004 VIRTUAL COLONOSCOPY 02/17/2004 PNEUMOCOCCAL VACCINES (50+ years) (1 of 1 - PCV) 2009 ZOSTER VACCINES (2 of 3) 11/07/2014 09/12/2014 OSTEOPOROSIS SCREENING INITI AL (ONE-TIME) 02/17/2024 INFLUENZA VACCINE (#1) 2025 COVID-19 VACCINE (4 - 2024-2 6 season) 2025 02/10/2022, 02/18/2021, 01/24/2021 Adult Td,Tdap Booster 10/08/2025 10/08/2015 , 02/21/2005 RSV VACCINE (1 - 1-dose 75+ series) 2034 HEPATITIS A VACCINES Aged Out No long er eligible based on patient's age to complete this topic HIB VACCINES Aged Out No longer eligi ble based on patient's age to complete this topic MENINGOCOCCAL VACCINES (ACWY) Aged Out No longer eligible based on patient's age to complete this topic MENINGOCOCCAL VACCINES (B) Aged Out N o longer eligible based on patient's age to complete this topic Medical Devices Not on file Procedures Procedure Name Priority Date/Time Associated Diagnosis Comments AMB REFERRAL TO [facility] PHYSICAL THERAPY Routine 07/10/2025 4:45 PM EDT Encounter for rehabilitation from Last 3 Months Results * Ambulatory referral to [facility] Physical Therapy (07/10/2025 4:45 PM EDT) Other Chris WEEKS [facility] REFERRALS Final Result from Last [address] [address] MEDICARE SUPPLEMENT MED[place] PART A & [place] [id number] [facility] [place] MEDICARE SUPPLEMENT MEDICARE PART A & [place] [address] MEDICARE SUPPLEMENT [facility] MEDICARE SUPPLEMENT [facility] [place] MEDICARE SUPPLEMENT MEDICARE PART A & [place] [address] MEDICARE SUPPLEMENT MEDICARE PART A & B [facility] MEDICARE SUPPLEMENT MEDICARE PART A & B [facility] MEDICARE SUPPLEMENT MEDICARE PART A & B Care Teams Dispatch Supervisor Relationship Specialty Start Date End Date Joanne Luna NP [address] [place] [phone] PCP - General Nurse Practitioner 06/12/25 Additional Source Comments The information contained in this document represents components of the legal health record. It is not the complete legal health record.[facility]
--- OUTSIDE RECORDS SUMMARY | 2025-07-13 09:46 | XMS_ITS | Encounter Summary ---
Author Organization [facility] Address [address] [place] [address] Phone Care Team Providers Care Patient Care Director Name Role Phone Patricia Méndez Primary Care Prov ider Joanne Luna NP Primary Care Provider [phone] Encounter Details Date Type Department Care Team (Late st Contact Info) Description 06/23/2023 Procedure Pass OR Admitting Dept - Virtual Department [address] [place], [place] [phone] Social History Tobacco Use Types Packs/Day Years [...] Description 07/17/2025 9:30 AM EDT Office Visit [address] [place] [address] Chris Padilla MD [address] [place] [phone] India Sawyer, PT [address] [place] [address] 07/27/2025 11:45 AM EDT Office Visit [address] [place] [address] Chris Padilla MD [address] [place] [phone] India Sawyer, PT [address] [place] [address] 07/31/2025 9:30 AM EDT Office Visit [facility] [address] [place] [address] Chris Padilla MD [address] [place] [phone] India Sawyer, PT [address] [place] [address] 08/03/2025 10:45 AM EDT Office Visit [facility] [address] [place] [address] Chris Padilla MD [address] [place] [phone] Gerald Bucio, ART SPECIALIST [address] [place] [address] 08/07/2025 9:30 AM EDT Office Visit [address] [place] [address] Chris Padilla MD [address] [place] [phone] India Sawyer, PT [address] [place] [address] 08/10/2025 9:15 AM EDT Office Visit [address] [place] [address] Chris Padilla MD [address] [place] [phone] Gerald Bucio, ART SPECIALIST 8 [place] [address] 08/15/2025 9:30 AM EDT Office Visit [address] [place] [address] Chris Padilla MD [address] [place] [phone] India Sawyer, PT [address] [place] [address] 08/17/2025 9:15 AM EDT Office Visit [address] [place] [address] Chris Padilla MD [address] [place] [phone] Gerald Bucio PTA 8 [place] [address] [email or web address] 08/21/2025 9:30 AM EDT Office Visit [facility] [address] [place] [address] Chris Padilla MD [address] [place] [address] India Sawyer, PT [address] [place] [address] 08/24/2025 9:30 AM EDT Office Visit [facility] [address] [place] [address] Chris Padilla MD [address] [place] [address] India Sawyer, PT [address] [place] [address] 09/26/2025 9:45 AM EST Appointment [facility], Bone Density - [address] [address] Fiorella Gant NP [address] [place] [address] documented as of this encounter Visit Diagnoses Not on filedocumented in this encounter Care Teams Patient Care Director Relationship Specialty Start Date End Date Patricia Méndez PA [address] [place], [place] [phone] PCP - General Emergency Medicine 02/10/18 06/11/25 Joanne Luna NP [address] [place] [phone] PCP - General Nurse Practitioner 06/12/25 documented as of this encounter Additional Source Comments The information contained in this document represents components of the legal health record. It is not the complete legal health record.[facility]
== END 2025-07-13 08:44 | disposition home or self-care (01) ==
LOC: HO.HMGCX 08:43
PROVIDERS: PCP Physician Assistant; Visit Provider Urology
DX: Z87.442 Personal history of urinary calculi (principal)
CPT/HCPCS: 76775

== ENCOUNTER → 2025-07-13 08:47 | Outpatient (BNV) | payer MEDICARE, OTHER, SELFPAY | PROVIDERS: PCP Physician Assistant; Visit Provider Radiology Diagnostic Radiology | DX: N28.89 Other specified disorders of kidney and ureter (principal) | CPT/HCPCS: 76775 ==

== ENCOUNTER 2025-07-21 07:27 | Outpatient (AMB) | payer MEDICARE, OTHER, SELFPAY ==
--- OUTSIDE RECORDS SUMMARY | 2025-07-17 09:30 | XMS_ITS | Encounter Summary ---
Author Organization [facility] Address [address] [employer] [facility] [address] [place] [address] Phone Care Team Providers Care Journeyman Sheet Metal Worker Name Role Phone Joanne Luna NP Primary Care Provider [phone] Reason for Visit * Physical Therapy (Within 3 days (urgent)) - Authorized Specialty Diagnoses / Procedures Referred By Mnai t Referred To Contact Physical Therapy Diagnoses R Anterior hip relacement on 06/12- Chris Padilla MD [address] [place] [address] Phone: tel: fax: [facility] 30 [place] [address] Phone: tel: Referral ID Status Reason Start Date Expiration Date V isits Requested Visits Authorized [id number] Authorized 06/23/2025 06/23/2026 99 99 Encounter Details Date Type Department Care Team (Late st Contact Info) Description 07/17/2025 9:30 AM EDT Office Visit [facility] 8 [place] [address] Chris Padilla MD [address] [place] [address] India Sawyer, PT [address] [place] [address] Muscle weakness (Primary Dx); Decreased range of right hip movement Social History Tobacco Use Types Packs/Day Years Used Date Smoking Tobacco: Former Cigarettes 1 10 976 - 1985 Smokeless Tobacco: Never Alcohol [...] Progress Notes * India Sawyer, PT - 07/17/2025 9:30 AM EDT Physical Therapy Treatment Note Patient Name: Nabila Kirk Date of : 1960 This patient has attended 2 visits since the onset Physical Therapy. Referring MD: Chris Padilla MD [address] [place] [address] Precautions/Safety: s/p R CARRIE R anterior approach (06/15/25 - per Gertrudis from surgeon office - patient has no precautions); (typical precautions based on approach/incision: use caution with extension and abduction) Subjective: Patient had active weekend, participating in a lot of walking, wants to try gardening for 30 minutes today, does not plan to kneel will try to sit on low stool/bench. Objective: Interventions: See encounter report for minutes associated with each intervention. Neuromuscular re-education: TA isometric brace Therapeutic Exercise: TA isometric brace, straight leg raise 1 x 10 R/L TA brace + hip bridge within conservative AROM 1 x 10 Sidelying clamshell 2 x 10 R/L Sidelying hip abduction 2 x 10 R/L Sidelying clamshell AROM sustained hold 10 seconds x 5 on R only Sidelying hip abduction lift up and over x 10 on L only Total gym leg press: level 10, adductor ball squeeze 2 x 10 Hip hiking/lowering x 10 R/L (4inch step) Tandem balance on airex foam x 40 seconds R/L Narrow base of support chair pose x 30 seconds Home Exercise Program: Home health program: LAQs x 10 SLR x 10 Standing marching x 10 Sit to stand x 10 Standing heel/toe raises x 10 Hip Abduction x 10 Standing - Hip Ext 10x SLS 5s 5x Reverse Lunges 10x Step-ups 10x Self-care/Education: review of adjusting seat position on stationary bicycle; Patient to wear sneakers next session; encouraged to continue with daily activity and exercise; discussed patient can talk to surgeon about when she can return to riding, discussed future mounting strategies. Assessment: Focus on lumbopelvic stability carryover from sidelying to standing exercises. PT provided verbal and tactile cues to ensure isolated strengthening with core/glute/hip table based exercises, participated in tandem balance progression on airex foam. Plan: Follow-up at 6 weeks and 3 days SCIfit vs. Recumbent bicycle Initiate scar tissue cross friction massage Groin/adductor myofascial release India Sawyer [place] [phone] documented in this encounter Plan of Treatment Upcoming Encounters Date Type Department Care Team (Late st Contact Info) Description 07/27/2025 11:45 AM EDT Office Visit [address] [place] [address] Chris Padilla MD 300 [place] [phone] India Sawyer, PT [address] [place] [address] 07/31/2025 9:30 AM EDT Office Visit [address] [place] [address] Chris Padilla MD [address] [place] [phone] India Sawyer, PT [address] [place] [address] 08/03/2025 10:45 AM EDT Office Visit [address] [place] [address] Chris Padilla MD [address] [place] [phone] Gerald Bucio, CAMP DISHWASHER 8 [place] [address] 08/07/2025 9:30 AM EDT Office Visit [address] [place] [address] Chris Padilla MD [address] [place] [phone] India Sawyer, PT [address] [place] [address] 08/10/2025 9:15 AM EDT Office Visit [facility] [address] [place] [address] Chris Padilla MD [address] [place] [phone] Gerald Bucio, CAMP DISHWASHER 8 [place] [address] 08/15/2025 9:30 AM EDT Office Visit [facility] [address] [place] [address] Chris Padilla MD [address] [place] [phone] India Sawyer, PT [address] [place] [address] 08/17/2025 9:15 AM EDT Office Visit [facility] [address] [place] [address] Chris Padilla MD [address] [place] [phone] Gerald Bucio, CAMP DISHWASHER [address] [place] [address] 08/21/2025 9:30 AM EDT Office Visit [address] [place] [address] Chris Padilla MD [address] [place] [phone] India Sawyer, PT [address] [place] [address] 08/24/2025 9:30 AM EDT Office Visit [address] [place] [address] Chris Padilla MD [address] [place] [address], [place] [phone] India Sawyer, PT [address] [place] [address] 09/26/2025 9:45 AM EST Appointment [facility], Bone Density - [address] [address] Fiorella Gant NP [address] [place] [address] documented as of this encounter Visit Diagnoses Diagnosis Muscle weakness- Primary Muscle weakness (generalized) Decreased range of right hip movement documented in this encounter Care Teams Journeyman Sheet Metal Worker Relationship Specialty Start Date End Date Joanne Luna NP [address] [place] [phone] PCP - General Nurse Practitioner 06/12/25 documented as of this encounter Additional Source Comments The information contained in this document represents components of the legal health record. It is not the complete legal health record.[facility]
--- OUTSIDE RECORDS SUMMARY | 2025-07-20 09:30 | XMS_ITS | Encounter Summary ---
Author Organization [facility] Address [address] [employer] [facility] [address] [place] [address] Phone Care Team Providers Care Calender Operator Helper Name Role Phone Joanne Luna NP Primary Care Provider [phone] Reason for Visit * Physical Therapy (Within 3 days (urgent)) - Authorized Specialty Diagnoses / Procedures Referred By Mani t Referred To Contact Physical Therapy Diagnoses R Anterior hip relacement on 06/12- Chris Padilla MD [address] [place] [address] Phone: tel: fax: [facility] [address] [place] [address] Phone: tel: Referral ID Status Reason Start Date Expiration Date V isits Requested Visits Authorized [id number] Authorized 06/23/2025 06/23/2026 99 99 Encounter Details Date Type Department Care Team (Late st Contact Info) Description 07/20/2025 9:30 AM EDT Office Visit [facility] [address] [place] [address] Chris Padilla MD [address] [place] [address] India Sawyer, PT [address] [place] [address] Muscle weakness (Primary Dx); Decreased range of [...] Progress Notes * India Sawyer, PT - 07/20/2025 9:30 AM EDT Physical Therapy Treatment Note Patient Name: Nabila Kirk Date of : 1960 This patient has attended 3 visits since the onset Physical Therapy. Referring MD: Chris Padilla MD [address] [place] [address] Precautions/Safety: s/p R CARRIE R anterior approach (06/15/25 - per Gertrudis from surgeon office - patient has no precautions); (precaution with exercise: patient has reported popping with standing hip flexion march and hip extension, exercise modified within limited range of motion) Subjective: Gardening for 20 minutes, able to complete tasks but felt fatigued after, wants to review HEP for home Objective: Interventions: See encounter report for minutes associated with each intervention. Neuromuscular re-education: TA isometric brace Therapeutic Exercise: Stationary recumbent bicycle, seat 10, resistance 1-2 x 10 minutes Bent knee groin/adductor stretch 1 min R/L with 2 pillow support Supine hamstring stretch with strap x 40 seconds R/L Standing quadriceps chair stretch x 40 seconds R/L TA isometric brace, straight leg raise 1 x 10 R/L TA brace + hip bridge within conservative AROM 1 x 10 Sidelying clamshell 1 x 10 R/L Sidelying hip abduction 1 x 10 R/L Sidelying clamshell AROM sustained hold 10 seconds x 5 on R/L only Sidelying hip abduction lift up and over x 10 on L only Tandem balance firm with trunk rotation x 40 seconds R/L Narrow base of support chair pose x 30 seconds Reverse step lunge x 10 R/L Standing hip flexion march x 10 R/L Not performed 07/20/25: Total gym leg press: level 10, adductor ball squeeze 2 x 10 Hip hiking/lowering x 10 R/L (4inch step) Home Exercise Program: Access Code: [email or web address] URL: [email or web address] Date: 07/20/2025 Prepared by: India Sawyer Exercises - Mobility: Adductor/groin stretch - 4-7 x weekly - 1 min hold - Mobility: Hamstring stretch with strap - 4-7 x weekly - 30-60 hold - Mobility: Quadriceps/Hip flexor Stretch - 4-7 x weekly - 30-60 hold - Strength: Straight leg raise with quad set - 3-4 x weekly - 1-2 sets - 10 reps - Supine Bridge - 3-4 x weekly - 1 sets - 10 reps - Sidelying Hip Abduction - 3-4 x weekly - 1 sets - 10 reps - Balance: Tandem stance - 3-4 x weekly - 3 sets - 30-45 hold - Strength: Marching with hands on WALL - 3-4 x weekly - 1 sets - 10 reps - Strength: Heel Raises - 3-4 x weekly - 2 sets - 10 reps - Balance: Single leg stance - 3-4 x weekly - 2-5 sets - 10-20 hold - Strength: Step Up - 3-4 x weekly - 1 sets - 10 reps - Strength: Hip extension: leg lift behind - 3-4 x weekly - 1 sets - 10 reps - Strength: Reverse Lunge - 3-4 x weekly - 1 sets - 10 reps Self-care/Education: updated HEP Assessment: Minimal verbal and tactile cues to ensure proper form with HEP, positive response to breathing during stretching with decreased muscle tension in L groin/adductor, challenged appropriately with tandem and single leg balance. Plan: Follow-up at 6 weeks and 3 days Initiate scar tissue cross friction massage Groin/adductor myofascial release India Sawyer [place] [phone] documented in this encounter Plan of Treatment Upcoming Encounters Date Type Department Care Team (Late st Contact Info) Description 07/27/2025 11:45 AM EDT Office Visit [address] [place] [address] Chris Padilla MD [address] [place] [place] [phone] India Saweyr, PT [address] [place] [address] 07/31/2025 9:30 AM EDT Office Visit [address] [place] [address] Chris Padilla MD [address] [place] [phone] India Sawyer, PT [address] [place] [address] 08/03/2025 10:45 AM EDT Office Visit [facility] [address] [place] [address] Chris Padilla MD [address] [place] [phone] Gerald Bucio, CHOIR LEADER 8 [place] [address] 08/07/2025 9:30 AM EDT Office Visit [facility] [address] [place] [address] Chris Padilla MD [address] [place] [phone] India Sawyer, PT [address] [place] [address] 08/10/2025 9:15 AM EDT Office Visit [facility] [address] [place] [address] Chris Padilla MD [address] [place] [phone] Gerald Bucio, CHOIR LEADER 8 [place] [address] 08/15/2025 9:30 AM EDT Office Visit [facility] [address] [place] [address] Chris Padilla MD [address] [place] [phone] India Sawyer, PT [address] [place] [address] 08/17/2025 9:15 AM EDT Office Visit [facility] [address] [place] [address] Chris Padilla MD [address] [place] [phone] Gerald Bucio, CHOIR LEADER 8 [place] [address] [email or web address] 08/21/2025 9:30 AM EDT Office Visit [facility] [address] [place] [address] Chris Padilla MD [address] [place] [phone] India Sawyer, PT [address] [place] [address] 08/24/2025 9:30 AM EDT Office Visit [facility] [address] [place] [address] Chris Padilla MD [address] [place] [phone] India Sawyer, PT [address] [place] [address] 09/26/2025 9:45 AM EST Appointment [facility] Density - [address] [address] Fiorella Gant NP [address] [place] [address] documented as of this encounter Visit Diagnoses Diagnosis Muscle weakness- Primary Muscle weakness (generalized) Decreased range of right hip movement documented in this encounter Care Teams Calender Operator Helper Relationship Specialty Start Date End Date Joanne Luna NP [address] [place] [phone] PCP - General Nurse Practitioner 06/12/25 documented as of this encounter Additional Source Comments The information contained in this document represents components of the legal health record. It is not the complete legal health record.[facility]
--- NOTE | 2025-07-21 07:28 | MHC.OFFVIS ---
Intake Visit Reasons: 1yr/US Hearing Care Practitioner Required: No Allergies No Known Allergies Allergy (Verified 07/21/25 07:29) Medication List - Last Reconciled 07/21/25 by Weston Her LPN acetaminophen 500 mg PO Q6H PRN HPI Comments Details: 07/21/25-- History of Present Illness The patient is a 65-year-old female presenting with a follow-up for kidney health management. The ultrasound showed no new kidney stones, mild hydronephrosis versus parapelvic cyst stable from prior imaging. The patient has been advised to maintain adequate fluid intake and reduce dietary sodium to prevent kidney stone formation. She admits to occasional increased salt usage during summer but generally avoids adding salt to meals. She tries to stay hydrated but feels she could improve her water intake. Additionally; The patient underwent hip replacement surgery in June and is currently in physical therapy, reporting good progress in recovery. Results - Ultrasound: 07/13/25--No new kidney stones. Plan 1. h/o kidney stones, no recurrance - Encourage adequate fluid intake and dietary sodium reduction to prevent stone formation. 2. FU prn 07/07/24--Nabila is a 64-year-old female who presents today to the office for a follow-up. Mild left hydronephrosis. Tiny right renal midpole echogenic foci may represent calcified vessels and do not appear typical of renal calculi. Incidental note on limited views of the pelvis of a left adnexal anechoic, cystic structure, possibly a pelvic cyst. Discussed 24 hour urine results: Total volume 1.0 L, Calcium 166 mg; Oxalate 35 mg, Sodium 129, Citrate 466 mg. Instructed on importance of fluid intake. Will refer to BILINGUAL SALES ASSISTANT, monitor kidneys, fu in one year. 10/08/2023?She is followed today for 24-hour urine collection. She was last seen by me on 07/30/2023 for post op stent removal. I reviewed the 24-hour urine collection test results revealed urine volume was 1.79 L which is increased from 450, urine calcium was 307 which is elevated, urine oxalate was 32, urine citrate was 773, and urine sodium was 286. I have discussed at length diet modification to decrease risk of forming more kidney stones. I have discussed low oxalate diet and specific foods to avoid including certain green leafy vegetables, chocalate, nuts, tea, beets, rubarb; low sodium, decreased use of animal protein and the importance of hydration drinking up to 2-2.5 liters of fluids and use of adding lemon to water to increase citrate in the diet. 07/30/2023?She is followed today for post op stent removal. She is a status post ureteroscopy done on 07/21/2023. Patient states that her is very sick and was hospitalized at [facility], Currently, he is undergoing a major surgery due to hiatal hernia.. Stone analysis was obtained which came back calcium oxalate dihydrate 10 %, and calcium oxalate monohydrate was 90%. 06/18/23 CTAP report which did not report intra renal caluli, left UVJ stone was treated as above. [facility] Medical History History of renal stone Hallux valgus with bunions Presbyopia Astigmatism Myopia Needle phobia Surgical History History of removal of ureteral stent History of bunionectomy Hx of hysterectomy Family History Mother Malignant neoplastic disease Myocardial infarction Father Myocardial infarction Sister Sepsis due to pneumonia Brother Acute deep vein thrombosis of leg Social History Household Members: Spouse Housing: House Alcohol intake: current Alcohol intake frequency: a few times a week Alcohol type: wine Patient Tobacco Use Status: Former Tobacco user Years Smoked: 30 Current occupational status: employed and retired 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 Sexual orientation: Straight/Heterosexual Gender identity: Female Review of Systems Const All systems reviewed & are unremarkable except as noted in HPI and below Reports no additional complaints Eyes Reports no additional complaints ENT Reports no additional complaints Card Reports no additional complaints Resp Reports no additional complaints GI Reports no additional complaints Reports as per HPI Musc Reports no additional complaints Skin/Breast Reports system reviewed and no additional complaints, except as documented Neuro Reports no additional complaints Psych Reports no additional complaints Endo Reports no additional complaints Dimitris/Lymph Reports no additional complaints Aller/Immun Reports no additional complaints Telehealth Telehealth Telehealth Platform: [facility] Location of provider rendering services: practice address Location of patient: address on file Patient Identification confirmed using: Name, : Yes Telehealth method: video Patient verbally consented to treatment: Yes Patient verbally consented to billing insurance company: Yes Patient informed of any privacy concerns related to visit: Yes Results Reviewed Results Reviewed: Date of Service: 07/13/25 CLINICAL HISTORY: Z87.442 - Personal history of urinary calculi --- Additional Notes or Special Instructions: Kidneys only US of kidneys Comparison: US/SR - US KIDNEY BILATERAL - 06/23/24 10:00 EDT Findings: Right kidney is normal in size, echogenicity and morphology, 9.9 cm in length. No calculus, mass or hydronephrosis. Left kidney is normal in size, echogenicity and morphology, 9.1 cm in length. No calculus or mass. Mild left hydronephrosis versus parapelvic cysts, difficult to differentiate on the submitted ultrasound images, there was mild left hydronephrosis on ultrasound from 2023. Limited color Doppler demonstrates unremarkable bilateral blood flow. Impression: Mild left hydronephrosis versus parapelvic cysts. Assessment & Plan Assessment & Plan (1) History of renal stone: Code(s): Z87.442 - Personal history of urinary calculi Category: Medical Plan Plan 1. h/o kidney stones, no recurrance - Encourage adequate fluid intake and dietary sodium reduction to prevent stone formation. 2. FU prn Patient Instructions: The patient had an opportunity to ask questions regarding treatment plan. The patient expressed understanding and agreement with the above treatment plan. The patient is aware they should contact our office by phone for worsening of their current condition or the appearance of new symptoms. Compliance is encouraged with any medications and followup testing that is ordered. It is a privilege to be allowed the opportunity to participate in the urologic care of your patient. If you have any questions or concerns regarding treatment for the above conditions please do not hesitate to contact me. The office telephone contact is [phone]. This note is constructed in part using voice recognition software. While every effort has been made to ensure accuracy government relations director errors may have been included. Yours sincerely, Bobbi Arguelles MD Scribe Plan - Not visible on output: Patient was informed and verbally consented to the use of an ambient scribe for clinic note documentation during this visit. Coding Level of Care Code Tele Est Pt Level 3 (75985) Diagnoses History of renal stone Z87.442
--- OUTSIDE RECORDS SUMMARY | 2025-07-21 07:29 | XMS_ITS | Clinical Summary ---
Author Organization [facility] Address [address] [facility] [address] [place] [address] Phone Care Team Providers Care Cattle Rancher Name Role Phone Joanne Luna NP Primary Care Provider [phone] Allergies No known active allergies Medications morphine [...] Encounters Date Type Department Care Team Description 07/20/2025 9:30 AM EDT Office Visit [facility] [address] [place] [address] Chris Padilla MD Pepyne, Rachael Mervine, PT Muscle weakness (Primary Dx); Decreased range of right hip movement 07/17/2025 9:30 AM EDT Office Visit [facility] [address] [place] [address] Chris Padilla MD Pepyne, Rachael Mervine, PT Muscle weakness (Primary Dx); Decreased range of right hip movement 07/10/2025 9:30 AM EDT Office Visit [facility] [address] [place] [address] Chris Padilla MD Pepyne, Rachael Mervine, PT Muscle weakness (Primary Dx); Decreased range of right hip movement 07/10/2025 Plan of Care Documentation [facility] [address] [place] [address] 07/04/2025 2:00 PM EDT [facility] [address] [place] [address] Florian Carr, PT PT OASIS DISCHARGE VISIT 06/29/2025 11:00 AM EDT [facility] [address] [place] [address] Florian Carr, PT PT HOME VISIT 06/27/2025 11:00 AM EDT Home Care Visit [facility] [address] [place] [address] Florian Carr, PT PT HOME VISIT 06/23/2025 11:00 AM EDT Home Care Visit [facility] [address] [place] [address] Chris Mendez, PT PT HOME VISIT 06/23/2025 Transcribe Orders [facility] [address] [place] [address] Chris Padilla MD Encounter for rehabilitation (Primary Dx) 06/20/2025 4:00 PM EDT Home Care Visit [facility] [address] [place] [address] Chris Mendez, PT PT HOME VISIT 06/15/2025 2:00 PM EDT Home Care Visit [facility] [address] [place] [address] Florian Carr, PT PT HOME VISIT 06/15/2025 Home [facility] [address] [place] [address] Linda Waite, PT CASE COMMUNICATION 06/14/2025 10:30 AM EDT Home Care Visit [facility] [address] [place] [address] Raphael Rocha, OT OT EVALUATION 06/14/2025 Home Care Visit [facility] [address] [place] [address] Raphael Rocha, OT TELEPHONE ENCOUNTER 06/13/2025 9:30 AM EDT Home Care Visit [facility] [address] [place] [address] Linda Waite, PT PT OASIS START OF CARE (SOC) 06/13/2025 Plan of Care Documentation [facility] [address] [place] [address] 06/12/2025 Orders Only [facility] [address] [place] [address] Homehealth, Interface ProviderMD from Last 3 Months [...] Description 07/27/2025 11:45 AM EDT Office Visit [facility] [address] [place] [address] [place] [address] Chris Padilla MD [address] [place] [phone] India Sawyer, PT [address] [place] [address] 07/31/2025 9:30 AM EDT Office Visit [address] [place] [address] Chris Padilla MD [address] [place] [phone] India Sawyer, PT [address] [place] [address] 08/03/2025 10:45 AM EDT Office Visit [facility] [address] [place] [address] Chris Padilla MD [address] [place] [phone] Gerald Bucio, TRIMMER MEAT 8 [place] [address] 08/07/2025 9:30 AM EDT Office Visit [address] [place] [address] Chris Padilla MD [address] [place] [address] India Sawyer, PT [address] [place] [address] 08/10/2025 9:15 AM EDT Office Visit [address] [place] [address] Chris Padilla MD [address] [place] [phone] Gerald Bucio, TRIMMER MEAT 8 [place] [address] 08/15/2025 9:30 AM EDT Office Visit [address] [place] [address] Chris Padilla MD [address] [place] [phone] India Sawyer, PT [address] [place] [address] 08/17/2025 9:15 AM EDT Office Visit [address] [place] [address] Chris Padilla MD [address] [place] [phone] Gerald Bucio, TRIMMER MEAT 8 [place] [address] 08/21/2025 9:30 AM EDT Office Visit [address] [place] [address] Chris Padilla MD [address] [place] [phone] India Sawyer, PT [address] [place] [address] 08/24/2025 9:30 AM EDT Office Visit [facility] [address] [place] [address] Chris Padilla MD [address] [place] [phone] India Sawyer, PT [address] [place] [address] 09/26/2025 9:45 AM EST Appointment [facility], Bone Density - [address] [address] Fiorella Gant, INSULATOR CUTTER AND FORMER [address] [place] [address] Health Maintenance Due Date Last Done Comments [...] 02/17/2024 INFLUENZA VACCINE (#1) 2025 COVID-19 VACCINE ( - 2024-2 6 season) 2025 02/10/2022, 02/18/2021, [...] Date/Time Associated Diagnosis Comments AMB REFERRAL TO [facility] PHYSICAL THERAPY Routine 07/10/2025 4:45 PM EDT Encounter for rehabilitation from Last 3 Months Results * Ambulatory referral to [facility] Physical Therapy (07/10/2025 4:45 PM EDT) Other Chris WEEKS [facility] REFERRALS Final Result from Last [address] [address] [place] [address] MEDICARE SUPPLEMENT MEDICARE PART A & B [facility] MEDICARE SUPPLEMENT MEDICARE PART A & B [facility] MEDICARE SUPPLEMENT [facility] MEDICARE SUPPLEMENT MEDICARE SUPPLEMENT MEDICARE PART A & B MEDICARE SUPPLEMENT MEDICARE SUPPLEMENT MEDICARE PART A & B MEDICARE SUPPLEMENT MEDICARE PART A & B [facility] MEDICARE SUPPLEMENT MEDICARE PART A [place] [id number] Care Teams Cattle Rancher Relationship Specialty Start Date End Date Joanne Luna NP [address] [place] [phone] PCP - General Nurse Practitioner 06/12/25 Additional Source Comments The information contained in this document represents components of the legal health record. It is not the complete legal health record.[facility]
--- OUTSIDE RECORDS SUMMARY | 2025-07-21 07:29 | XMS_ITS | Encounter Summary ---
Author Organization [facility] Address [address] [place] [address] Phone Care Team Providers Care Fabrication Welder Name Role Phone Patricia Méndez Primary Care Prov ider Joanne Luna NP Primary Care Provider [phone] Encounter Details Date Type Department Care Team (Late st Contact Info) Description 12/22/2022 Procedure Pass [facility], Ct Scan - [address] [phone] Social History Tobacco Use Types Packs/Day Years [...] 2:09 AM EST Geetha Mcgregor RN * [place] Suicide Severity Rating Scale (Screener/Recent Self-Report) Question [...] Description 07/27/2025 11:45 AM EDT Office Visit [facility] [address] [place] [address] Chris Padilla MD [address] [facility] [place] [address] India Sawyer, PT [address] [place] [address] 07/31/2025 9:30 AM EDT Office Visit [facility] [address] [place] [address] Chris Padilla MD [address] [place] [address] India Sawyer, PT [address] [place] [address] 08/03/2025 10:45 AM EDT Office Visit [facility] [address] [place] [address] Chris Padilla MD [address] [place] [phone] Gerald Bucio, PAPERBOARD BOX MAKER [address] [place] [address] 08/07/2025 9:30 AM EDT Office Visit [facility] [address] [place] [address] Chris Padilla MD [address] [place] [phone] India Sawyer, PT [address] [place] [address] 08/10/2025 9:15 AM EDT Office Visit [facility] [address] [place] [address] Chris Padilla MD [address] [place] [phone] Gerald Bucio, PAPERBOARD BOX MAKER 8 [place] [address] 08/15/2025 9:30 AM EDT Office Visit [facility] [address] [place] [address] Chris Padilla MD [address] [place] [phone] India Sawyer, PT [address] [place] [address] 08/17/2025 9:15 AM EDT Office Visit [facility] [address] [place] [address] Chris Padilla MD [address] [place] [phone] Gerald Bucio, PAPERBOARD BOX MAKER [address] [place] [address] 08/21/2025 9:30 AM EDT Office Visit [facility] 8 [place] [address] Chris Padilla MD [address] [facility] [place] [address] India Sawyer, PT [address] [place] [address] 08/24/2025 9:30 AM EDT Office Visit [facility] 8 [place] [address] Chris Padilla MD [address] [place] [phone] India Sawyer, PT [address] [place] [address] 09/26/2025 9:45 AM EST Appointment [facility], Bone Density - [address] [address] Fiorella Gant NP [address] [place] [address] documented as of this encounter Visit Diagnoses Not on filedocumented in this encounter Care Teams Fabrication Welder Relationship Specialty Start Date End Date Patricia Méndez PA [address] [place] [address] PCP - General Emergency Medicine 02/10/18 06/11/25 Joanne Luna NP [address] [place] [phone] PCP - General Nurse Practitioner 06/12/25 documented as of this encounter Additional Source Comments The information contained in this document represents components of the legal health record. It is not the complete legal health record.[facility]
--- OUTSIDE RECORDS SUMMARY | 2025-07-21 07:29 | XMS_ITS | Encounter Summary ---
Author Organization [facility] Address [address] [place] [address] Phone Care Team Providers Care Hand Cloth Folder Name Role Phone Patricia Méndez Primary Care Prov ider Joanne Luna NP Primary Care Provider Encounter Details Date Type Department Care Team (Latest Contact Info) Description 11/30/2024 Transcribe Orders Virtual Department [address] [place] [address] Fiorella Gant NP [address] [place], [place] [phone] Asymptomatic menopausal state (Primary Dx) Social History [...] Description 07/27/2025 11:45 AM EDT Office Visit [facility] [address] [place] [address] Chris Padilla MD [address] [place] [phone] India Sawyer, PT [address] [place] [address] 07/31/2025 9:30 AM EDT Office Visit [facility] [address] [place] [address] Chris Padilla MD [address] [place] [phone] India aSwyer, PT [address] [place] [address] 08/03/2025 10:45 AM EDT Office Visit [facility] [address] [place] [address] Chris Padilla MD [address] [place] [phone] Gerald Bucio, TAG STRINGER 8 [place] [address] 08/07/2025 9:30 AM EDT Office Visit [facility] [address] [place] [address] Chris Padilla MD [address] [place] [phone] India Sawyer, PT [address] [place] [address] 08/10/2025 9:15 AM EDT Office Visit [facility] [address] [place] [address] Chris Padilla MD [address] [place] [phone] Gerald Bucio, TAG STRINGER [address] [place] [address] 08/15/2025 9:30 AM EDT Office Visit [facility] [address] [place] [address] Chris Padilla MD [address] [place] [phone] India Sawyer, PT [address] [place] [address] 08/17/2025 9:15 AM EDT Office Visit [facility] [address] [place] [address] Chris Padilla MD [address] [place] [phone] Gerald Bucio, TAG STRINGER 8 [place] [address] [email or web address] 08/21/2025 9:30 AM EDT Office Visit [facility] [address] [place] [address] Chris Padilla MD [address] [facility] [place] [phone] India Sawyer, PT [address] [place] [address] [email or web address] 08/24/2025 9:30 AM EDT Office Visit [facility] [address] [place] [address] Chris Padilla MD [address] [facility] [place] [phone] India Sawyer, PT [address] [place] [address] [email or web address] 09/26/2025 9:45 AM EST Appointment [facility], Bone Density - [address] [address] Fiorella Gant NP [address] [place] [address] Scheduled Orders Name Type Priority Associated Diagnoses Orde r Schedule DXA Screening Imaging Routine Asymptomatic menopausal state Expected: 11/30/2024, Expires: 11/30/2025 documented as of this encounter Visit Diagnoses Diagnosis Asymptomatic menopausal state- Primary documented in this encounter Care Teams Hand Cloth Folder Relationship Specialty Start Date End Date Patricia Méndez PA [address] [place] [address] PCP - General Emergency Medicine 02/10/18 06/11/25 Joanne Luna NP [address] [place] [address] PCP - General Nurse Practitioner 06/12/25 documented as of this encounter Additional Source Comments The information contained in this document represents components of the legal health record. It is not the complete legal health record.[facility]
--- OUTSIDE RECORDS SUMMARY | 2025-07-21 07:29 | XMS_ITS | Encounter Summary ---
Author Organization [facility] Address [address] [place] [address] Phone Care Team Providers Care Paying Teller Name Role Phone Patricia Méndez Primary Care Prov ider Joanne Luna NP Primary Care Provider [phone] Encounter Details Date Type Department Care Team (Late st Contact Info) Description 06/23/2023 Procedure Pass [place] Admitting Dept - Virtual Department [address] [place], [place] [phone] Social History Tobacco Use Types Packs/Day Years [...] Description 07/27/2025 11:45 AM EDT Office Visit [address] [place] [address] Chris Padilla MD [address] [place] [phone] India Sawyer, PT [address] [place] [address] 07/31/2025 9:30 AM EDT Office Visit [address] [place] [address] Chris Padilla MD [address] [place] [address] India Sawyer, PT [address] [place] [address] 08/03/2025 10:45 AM EDT Office Visit [address] [place] [address] Chris Padilla MD [address] [place] [address] Gerald Bucio, JOSE 8 [place] [address] 08/07/2025 9:30 AM EDT Office Visit [facility] [address] [place] [address] Chris Padilla MD [address] [place] [phone] India Sawyer, PT [address] [place] [address] 08/10/2025 9:15 AM EDT Office Visit [facility] [address] [place] [address] Chris Padilla MD [address] [place] [phone] Gerald Bucio, SLURRY WORKER 8 [place] [address] 08/15/2025 9:30 AM EDT Office Visit [facility] [address] [place] [address] Chris Padilla MD [address] [place] [address] India Sawyer, PT [address] [place] [address] 08/17/2025 9:15 AM EDT Office Visit [facility] [address] [place] [address] Chris Padilla MD [address] [place] [address] Gerald Bucio, SLURRY WORKER 8 [place] [address] 08/21/2025 9:30 AM EDT Office Visit [facility] [address] [place] [address] BrothChris menendez MD [address] [place] [phone] India Sawyer, PT [address] [place] [address] 08/24/2025 9:30 AM EDT Office Visit [facility] [address] [place] [address] BrothChris menendez MD [address] [place] [phone] India Sawyer, PT [address] [place] [address] 09/26/2025 9:45 AM EST Appointment [facility], Bone Density - [address] [address] Fiorella Gant NP [address] [place] [address] documented as of this encounter Visit Diagnoses Not on filedocumented in this encounter Care Teams Paying Teller Relationship Specialty Start Date End Date Patricia Méndez PA [address] [place] [address] PCP - General Emergency Medicine 02/10/18 06/11/25 Joanne Luna NP [address] [place] [address] PCP - General Nurse Practitioner 06/12/25 documented as of this encounter Additional Source Comments The information contained in this document represents components of the legal health record. It is not the complete legal health record.[facility]
== END 2025-07-21 16:49 | disposition home or self-care (01) ==
LOC: HO.HUSH 07:27
PROVIDERS: PCP Physician Assistant; Visit Provider Urology
DX: Z87.442 Personal history of urinary calculi (principal)
CPT/HCPCS: 99213